=== PATIENT | male | born 1965 | race Caucasian/White ===

== ENCOUNTER 2024-11-03 09:23 | Outpatient (OUT) | payer OTHER, SELFPAY ==
--- OUTSIDE RECORDS SUMMARY | 2024-10-15 11:43 | XMS_ITS | Continuity of Care Document ---
Author Organization [facility] Address [address] [place] [address] Phone Care Team Providers Care Computer Patternmaker Name Role Phone Nick Velásquez Unavailable Unavailable Allergies, Adverse Reactions, Alerts Substance Reaction Status Criticality No Known Allergies Active No Inform ation Medications Medication Instructions Dosage Effective Dates (start - stop) Status Comments Trulicity Subcutaneous Solution Auto-injector 0.75 MG/0.5ML INJECT 0.5ML SUBCUTANEOUSLY EVERY WEEK - Active trazodone 50 mg tablet take 1-2 tablets by oral route every day at bedtime - Active tamsulosin 0.4 mg capsule Take 1 capsule by mouth daily 1/2 hour following the same meal each day - Active omeprazole 20 mg capsule,delayed release take 1 capsule by oral route every day 30 minutes to 1 hour before a meal 20 MG - Active decreased dose lovastatin 40 mg tablet take 2 tablet by oral route every day with the evening meal 80 MG - Active cetirizine 10 mg tablet take 1 tablet by oral route every day 10 MG - Active Cymbalta 60 mg capsule,delayed release take 1 capsule by oral route every day - Active fluticasone propionate 50 mcg/actuation nasal spray,suspension spray 1 - 2 spray by intranasal route every day in each nostril as needed 50-100 MCG - Active gabapentin 600 mg tablet take 2 tablet by oral route 3 times every day 1200 MG - Active LiquiGlide G7 Sensor device Use to check blood sugar daily. Change sensor every 3 months - Active metformin 1,000 mg tablet TAKE 1 TABLET BY MOUTH TWICE A DAY WITH MORNING AND EVENING MEALS - Active polyethylene glycol 3350 17 gram/dose oral powder Mix 17g (one capful) with 8 ounces of water or juice daily as needed for constipation - Active Wrist Brace Large Wearing nightly for hand numbness - Active Right and Left Wrist hydrocodone 7.5 mg-acetaminophen 325 mg tablet take 1 tablet by oral route every 8 hours as needed for pain 1 tablet - Active aspirin 81 mg tablet,delayed release take 1 tablet by oral route every day 81 MG - Active Trulicity 0.75 mg/0.5 mL subcutaneous pen injector inject (0.75MG) by subcutaneous route every week 0.75 MG - No Longer Active Procedures Procedure Date CBC (NO DIFF)&PLATELET CT Offsite Lab METABOLIC PANEL Offsite Lab GLYCOHEMOGLOBIN(A1C) Offsite Lab 2024 LIPID PANEL Offsite Lab OFFICE VISIT/EST LEVEL IV HG A1C LEVEL 7.0-8.0% LDL-C <100 MG/DL NEG MICROALBUMINURIA REV DIAST BP 80-89 MM HG SYST BP >=130-139MM HG RVW MEDS BY RX/DR IN [facility] MED LIST DOCD IN [facility] COLORECTAL CA SCREEN DOC REV OFFICE VISIT/EST LEVEL IV HG A1C LEVEL 7.0-8.0% LDL-C <100 MG/DL NEG MICROALBUMINURIA REV DIAST BP < 80 MM HG SYST BP < 130 MM HG RVW MEDS BY RX/DR IN [facility] MED LIST DOCD IN [facility] Screen Tobacco; User No Counseling PHQ2 Negative COLORECTAL CA SCREEN DOC REV URINE MICROALBUMIN CREATININE/24 HR. URINE [facility] Drug Monitoring Offsite Lab CBC (NO DIFF)&PLATELET CT Offsite Lab METABOLIC PANEL Offsite Lab GLYCOHEMOGLOBIN(A1C) Offsite Lab 2024 LIPID PANEL Offsite Lab VITAMIN B-12 CHEMISTRY FOLIC ACID (FOLATE) SERUM Vitamin D 3 25 Hydroxy Level Offsite Lab VENIPUNCTURE OFFICE VISIT/EST LEVEL IV HG A1C LEVEL < 7.0% LDL-C <100 MG/DL NEG MICROALBUMINURIA REV DIAST BP < 80 MM HG SYST BP < 130 MM HG RVW MEDS BY RX/DR IN [facility] MED LIST DOCD IN [facility] Screen Tobacco; User No Counseling COLORECTAL CA SCREEN DOC REV PT [place] USE OFFICE VISIT/EST LEVEL IV HG A1C LEVEL < 7.0% LDL-C <100 MG/DL NEG MICROALBUMINURIA REV DIAST BP < 80 MM HG SYST BP < 130 MM HG RVW MEDS BY RX/DR IN [facility] MED LIST DOCD IN [facility] Screen Tobacco; User No Counseling COLORECTAL CA SCREEN DOC REV [employer] W Inter&Rpt OnSite Op thamology DIL RETINA WITHOUT RETINOPATHY OFFICE VISIT/EST LEVEL IV HG A1C LEVEL < 7.0% LDL-C <100 MG/DL DIAST BP < 80 MM HG SYST BP < 130 MM HG RVW MEDS BY RX/DR IN [facility] MED LIST DOCD IN [facility] Screen Tobacco; User No Counseling COLORECTAL CA SCREEN DOC REV URINE DIP Onsite NON AUTO W/0 MICRO METABOLIC PANEL Offsite Lab CBC (NO DIFF)&PLATELET CT Offsite Lab Se GLYCOHEMOGLOBIN(A1C) Offsite Lab 2023 LIPID PANEL Offsite Lab VITAMIN B-12 CHEMISTRY FOLIC ACID (FOLATE) SERUM Vitamin D 3 25 Hydroxy Level Offsite Lab URINE MICROALBUMIN URINE CULTURE Offsite Psychotherapy Diagnostic Evaluation OV J OFFICE VISIT/EST LEVEL IV HG A1C LEVEL < 7.0% LDL-C <100 MG/DL DIAST BP < 80 MM HG SYST BP < 130 MM HG RVW MEDS BY RX/DR IN [facility] MED LIST DOCD IN [facility] Screen Tobacco; User No Counseling PHQ2 Pos W/ PHQ9 Completed COLORECTAL CA SCREEN DOC REV AMNT PAIN NOTED PAIN PRSNT VENIPUNCTURE OFFICE VISIT/EST LEVEL IV HG A1C LEVEL < 7.0% LDL-C <100 MG/DL DIAST BP < 80 MM HG SYST BP < 130 MM HG RVW MEDS BY RX/DR IN [facility] MED LIST DOCD IN [facility] Screen Tobacco; User No Counseling PHQ2 Negative COLORECTAL CA SCREEN DOC REV CBC (NO DIFF)&PLATELET CT Offsite Lab Ju METABOLIC PANEL Offsite Lab PSA (PROSTATE SPEC. ANTIGEN) C-REACTIVE PROTEIN (CRP) SED.RATE/AUTOMATED (Offsite) OFFICE VISIT/EST LEVEL IV HG A1C LEVEL < 7.0% LDL-C <100 MG/DL RVW MEDS BY RX/DR IN [facility] MED LIST DOCD IN [facility] Screen Tobacco; User No Counseling PHQ2 Negative COLORECTAL CA SCREEN DOC REV OFFICE VISIT/EST LEVEL IV MIK/ARB THERAPY RXD/TAKEN HG A1C LEVEL < 7.0% LDL-C <100 MG/DL DIAST BP < 80 MM HG SYST BP < 130 MM HG RVW MEDS BY RX/DR IN [facility] MED LIST DOCD IN [facility] Screen Tobacco; User No Counseling PHQ2 Negative COLORECTAL CA SCREEN DOC REV AMNT PAIN NOTED PAIN PRSNT T-4 FREE Offsite Lab TSH Offsite Lab CBC (NO DIFF)&PLATELET CT Offsite Lab Ap METABOLIC PANEL Offsite Lab GLYCOHEMOGLOBIN(A1C) Offsite Lab 2023 LIPID PANEL Offsite Lab OFFICE VISIT/EST LEVEL IV MIK/ARB THERAPY RXD/TAKEN HG A1C LEVEL < 7.0% LDL-C <100 MG/DL DIAST BP < 80 MM HG SYST BP < 130 MM HG RVW MEDS BY RX/DR IN [facility] Yoseph-29-2024 MED LIST DOCD IN [facility] Screen Tobacco; User No Counseling PHQ2 Negative COLORECTAL CA SCREEN DOC REV Substance Abuse screening OFFICE VISIT/EST LEVEL III MIK/ARB THERAPY RXD/TAKEN DIAST BP 80-89 MM HG SYST BP < 130 MM HG RVW MEDS BY RX/DR IN [facility] MED LIST DOCD IN [facility] Screen Tobacco; User No Counseling PHQ2 Negative COLORECTAL CA SCREEN DOC REV METABOLIC PANEL Offsite Lab CBC (NO DIFF)&PLATELET CT Offsite Lab No GLYCOHEMOGLOBIN(A1C) Offsite Lab 2022 LIPID PANEL Offsite Lab OFFICE VISIT/EST LEVEL IV MIK/ARB THERAPY RXD/TAKEN DIAST BP < 80 MM HG SYST BP < 130 MM HG RVW MEDS BY RX/DR IN [facility] MED LIST DOCD IN [facility] Screen Tobacco; User No Counseling PHQ2 Negative COLORECTAL CA SCREEN DOC REV OFFICE VISIT/EST LEVEL III MIK/ARB THERAPY RXD/TAKEN HG A1C LEVEL < 7.0% DIL RETINA WITHOUT RETINOPATHY LDL-C <100 MG/DL DIAST BP 80-89 MM HG SYST BP < 130 MM HG RVW MEDS BY RX/DR IN [facility] MED LIST DOCD IN [facility] Screen Tobacco; User No Counseling PHQ2 Negative COLORECTAL CA SCREEN DOC REV OFFICE VISIT/EST LEVEL IV MIK/ARB THERAPY RXD/TAKEN HG A1C LEVEL < 7.0% DIL RETINA WITHOUT RETINOPATHY 23 LDL-C <100 MG/DL DIAST BP < 80 MM HG SYST BP < 130 MM HG RVW MEDS BY RX/DR IN [facility] MED LIST DOCD IN [facility] Screen Tobacco; User No Counseling PHQ2 Negative COLORECTAL CA SCREEN DOC REV [facility] Drug Monitoring Offsite Lab OFFICE VISIT/EST LEVEL IV Rec MIK/ARB HG A1C LEVEL < 7.0% DIL RETINA WITHOUT RETINOPATHY 23 LDL-C <100 MG/DL DIAST BP < 80 MM HG SYST BP < 130 MM HG RVW MEDS BY RX/DR IN [facility] MED LIST DOCD IN [facility] Screen Tobacco; User No Counseling PHQ2 Negative COLORECTAL CA SCREEN DOC REV AMNT PAIN NOTED PAIN PRSNT OFFICE VISIT/EST LEVEL IV Rec MIK/ARB HG A1C LEVEL < 7.0% LDL-C <100 MG/DL DIAST BP < 80 MM HG SYST BP < 130 MM HG Medication Reviewed Screened Tobacco; User With Counseling J PHQ2 Negative PT [facility] [place] USE IMMUNIZATION ADM/SNGL Flu Quad; INJ;Pres Free; 3+ Yrs (C) EXMP T OFFICE VISIT/EST LEVEL IV Rec MIK/ARB HG A1C LEVEL < 7.0% Foot Exam LDL-C <100 MG/DL DIAST BP < 80 MM HG SYST BP < 130 MM HG Medication Reviewed Screened Tobacco; User With Counseling O PHQ2 Negative CBC (NO DIFF)&PLATELET CT Offsite Lab Se METABOLIC PANEL Offsite Lab GLYCOHEMOGLOBIN(A1C) Onsite Lab LIPID PANEL Offsite Lab [facility] Drug Monitoring OFFICE VISIT/EST LEVEL IV Rec MIK/ARB HG A1C LEVEL < 7.0% Foot Exam LDL-C <100 MG/DL DIAST BP < 80 MM HG SYST BP < 130 MM HG Medication Reviewed Screened Tobacco; User With Counseling J PHQ2 Negative CBC (NO DIFF)&PLATELET CT METABOLIC PANEL GLYCOHEMOGLOBIN(A1C) LIPID PANEL OFFICE VISIT/EST LEVEL IV Rec MIK/ARB HG A1C LEVEL < 7.0% Foot Exam DIAST BP < 80 MM HG SYST BP < 130 MM HG Screened Tobacco; User With Counseling A PHQ2 Negative OFFICE VISIT/EST LEVEL IV Rec MIK/ARB HG A1C LEVEL < 7.0% Foot Exam Screened Tobacco; User With Counseling F PHQ2 Negative [facility] Drug Monitoring OFFICE VISIT/EST LEVEL IV Rec MIK/ARB HG A1C LEVEL 7.0-8.0% Foot Exam DIAST BP 80-89 MM HG SYST BP < 130 MM HG Screened Tobacco; User With Counseling J PHQ2 Negative COLORECTAL CA SCREEN DOC REV PT [facility] [place] USE OFFICE VISIT/EST LEVEL III TeleHealth Visit Rec MIK/ARB LDL-C <100 MG/DL Medication Reviewed Screened Tobacco; User With Counseling N PHQ2 Negative [employer] W Inter&Rpt OnSite Oc LOW RISK FOR RETINOPATHY METABOLIC PANEL LIPID PANEL GLYCOHEMOGLOBIN(A1C) URINE MICROALBUMIN IMMUNIZATION ADM/SNGL Flu Quad; INJ;Pres Free; 3+ Yrs (C) EXMP T OFFICE VISIT/EST LEVEL IV Rec MIK/ARB HG A1C LEVEL 7.0-8.0% LDL-C <100 MG/DL DIAST BP < 80 MM HG SYST BP < 130 MM HG Medication Reviewed Screened Tobacco; User With Counseling O OFFICE VISIT/NEW LEVEL IV Rec MIK/ARB DIAST BP 80-89 MM HG SYST BP < 130 MM HG Medication Reviewed Screened Tobacco; User With Counseling A PHQ2 Negative PT [place] [place] USE Advance Directives Directive Yes / No Effective Date File Name No Information Encounters Encounter Description Practice Location Reason(s) For Visit Diagnoses Date Provider Providers Copied on Encounter [facility], [address] [address], [place], [place], [id number], tel:[phone] [place] [address] No Information 5 James Romero. [address] [place], [place], [facility], [place]. [phone] [facility], [address], [place], [place], [id number], [phone] [place] [address] No Information 5 James Romero. [address], [place], [place], [facility], [place]. tel:[phone] OFFICE VISIT/EST LEVEL IV [facility], [address], [place], [place], [id number], [phone] [place] [address] hyperlipidemi a (chief complaint)hyp ertension (chief complaint)jonas betes (chief complaint) Peripheral sensory neuropathy due to type 2 diabetes mellitusBenig n essential HTNHyperlipid emia, mixedBody mass index (BMI) 36.0-36.9, adult Aug- 5 James Romero. [address] , [place], [place], [facility], [place]. [phone] OFFICE VISIT/EST LEVEL IV [facility], [address], [place], [place], [id number], [phone] [facility] diabetes (chief complaint)hyp erlipidemia (chief complaint) Dietary counseling and surveillanceD iabetic polyneuropath y associated with type 2 diabetes mellitusPerip heral neuropathic painMixed hyperlipidemi aOther insomniaBenig n essential HTNOther chronic painBody mass index (BMI) 36.0-36.9, adult Jun- 5 James Chopra [address] , [place], [place], [facility], [place]. [phone] OFFICE VISIT/EST LEVEL IV [facility], [address], [place], [place], [id number], tel:[phone] [facility] diabetes (chief complaint)hyp erlipidemia (chief complaint) Dietary counseling and surveillanceD iabetic polyneuropath y associated with type 2 diabetes mellitusPerip heral neuropathic painUrge urinary incontinenceM ixed hyperlipidemi aOther insomniaOther chronic painBenign essential HTNBody mass index (BMI) 35.0-35.9, adult Yoseph- 5 James Stevens[address], [place], [place], [facility], [place]. tel:[phone] OFFICE VISIT/EST LEVEL IV [facility], [address], [place], [place], [id number], tel:[phone] [facility] diabetes (chief complaint) Dietary counseling and surveillanceP eripheral neuropathic painUmbilical hernia without obstruction and without gangreneUrge urinary incontinenceD iabetic polyneuropath y associated with type 2 diabetes mellitusBody mass index (BMI) 33.0-33.9, adultType 2 diabetes mellitus with hyperglycemia Jan- 4 James Romero. [address] , [place], [place], [facility], . tel:[phone] [facility], [address], [place], [place], [id number], tel:[phone] [facility] Frequent fallsPeripher al neuropathic pain Oct- 0 4 James Baker [address] [place], [place], [facility], [place]. tel:[phone] [facility], [address], [place], [place], [id number], tel:[phone] [facility] Periumbilical hernia 4 James Romero. [address], [place], [facility], [place]. tel:[phone] [facility], [address], [place], [place], [id number], tel:[phone] [facility] Umbilical hernia without obstruction and without gangrene Nov- 4 James Romero. [address] , [place], [place], [facility], . [phone] OFFICE VISIT/EST LEVEL IV [facility], [address], [place], [place], [id number], tel:[phone] [facility] diabetes (chief complaint)hyp ertension (chief complaint)inc ontinence (chief complaint) Dietary counseling and surveillanceT ype 2 diabetes mellitus with hyperglycemia Peripheral neuropathic painUrge urinary incontinenceU mbilical hernia without obstruction and without gangreneAtypi ashia moleBody mass index (BMI) 30.0-30.9, adult Sep- 4 James Romero. [address] , [place], [place], [facility], . tel:[phone] Psychotherapy Diagnostic Evaluation [facility], [address], [place], [address] [place] [address], [phone] [facility] Adjustment disorder with mixed anxiety and depressed mood 4 Sara Pedroza. [address] , [place], [place], [id number] , . [phone] OFFICE VISIT/EST LEVEL IV [facility], [address], [place], [place], [id number], [phone] [place] [address] Skin Lesion (chief complaint)Amadeo k pain (chief complaint) Dietary counseling and surveillanceH erpes zoster without complicationU nintentional weight lossOther constipationB dina mass index (BMI) 30.0-30.9, adultModerate major depression 4 James Romero. [address] , [place], [place], [facility], [place]. [phone] OFFICE VISIT/EST LEVEL IV [facility], [address], [place], [place], [id number], tel:[phone] [facility] unintentional weight loss (chief complaint) Dietary counseling and surveillanceU nintentional weight lossConstipat ion, unspecified constipation typeNocturiaC erebral ischemiaBody mass index (BMI) 31.0-31.9, adult 4 James Romero. [address] , [place], [place], [facility], . tel:[phone] [facility], [address], [place], [address] [place] [address], tel:[phone] [facility] Frequent fallsUnsteady gait 4 James Romero. [address] , [place], [place], [facility], . tel:[phone] OFFICE VISIT/EST LEVEL IV [facility], [address], [place], [address] [place] [address], tel:[phone] [place] [address] ER F/U (chief complaint) Dietary counseling and surveillanceM michelle impairmentGai t disturbanceFr equent fallsFrequent headachesUnin tentional weight lossSyncope and collapseBody mass index (BMI) 32.0-32.9, adult 4 James Romero. [address] , [place], [place], [facility], . tel:[phone] OFFICE VISIT/EST LEVEL IV [facility], [address], [place], [place], [id number], tel:[phone] [facility] diabetes (chief complaint)hyp ertension (chief complaint)hyp erlipidemia (chief complaint) Dietary counseling and surveillanceT ype 2 diabetes mellitus with hyperglycemia Essential hypertensionP eripheral neuropathic painDysphagia , unspecified typeParesthes ia of both handsUnintent ional weight lossBody mass index (BMI) 33.0-33.9, adult 4 James Romero. [address] , [place], [facility], [place]. tel:[phone] OFFICE VISIT/EST LEVEL IV [facility], [address], [place], [place], [id number], tel:[phone] [facility] diabetes (chief complaint)hyp ertension (chief complaint)hyp erlipidemia (chief complaint) Dietary counseling and surveillanceE ssential hypertensionP eripheral neuropathic painType 2 diabetes mellitus with hyperglycemia Paresthesia of both handsDysphagi a, unspecified typeBody mass index (BMI) 37.0-37.9, adult 4 James Romero. [address] , [place], [place], [facility], . tel:[phone] [facility], [address], [place], [place], [id number], tel:[phone] [facility] Peripheral neuropathic painType 2 diabetes mellitus with diabetic polyneuropath y 4 James Romero. [address] , [place], [place], [facility], [place]. tel:[phone] OFFICE VISIT/EST LEVEL III [facility], [address], [place], [place], [id number], tel:[phone] [facility] dark spot on toe (chief complaint) Dietary counseling and surveillanceC ellulitis of left toeOnychodyst rophyIngrown toenail of left footBody mass index (BMI) 40.0-44.9, adult 3 James Romero. [address] , [place], [place], [facility], [place]. tel:[phone] [facility], [address], [place], [place], [id number], tel:[phone] [place] [address] No Information 3 James Romero. [address] , [place], [facility], . tel:[phone] OFFICE VISIT/EST LEVEL IV [facility], [address], [place], [place], [address], tel:[phone] [facility] diabetes (chief complaint)eloisa ropathy (chief complaint) Dietary counseling and surveillanceP eripheral neuropathic painEssential hypertensionH yperlipidemia , unspecifiedTy pe 2 diabetes mellitus with hyperglycemia Body mass index (BMI) 40.0-44.9, adult Oct-3 0-202 3 James Chopra [address] , [place], [place], [facility], [place]. tel:[phone] OFFICE VISIT/EST LEVEL III [facility], [address], [place], [place], [id number], tel:[phone] [facility] neuropathy (chief complaint) Dietary counseling and surveillanceT ype 2 diabetes mellitus with diabetic polyneuropath yPeripheral neuropathic painBody mass index (BMI) 40.0-44.9, adult Sep-0 8- 3 James Romero. [address] [place] [address], [facility], [place]. tel:[phone] OFFICE VISIT/EST LEVEL IV [facility], [address] [facility], [place], [place], [address], tel:[phone] [facility] diabetes (chief complaint)hyp ertension (chief complaint)hyp erlipidemia (chief complaint)Eloisa ropathy (chief complaint) Dietary counseling and surveillanceT ype 2 diabetes mellitus with hyperglycemia Type 2 diabetes mellitus with diabetic polyneuropath yPeripheral neuropathic painHyperlipi demia, unspecifiedEs sential hypertensionB dina mass index (BMI) 40.0-44.9, adult Aug-0 7- 3 James Romero. [address] [place] [address], [facility], [place]. tel:[phone] OFFICE VISIT/EST LEVEL IV [facility], [address], [place], [place], [id number], tel:[phone] [facility] diabetes (chief complaint)hyp ertension (chief complaint)hyp erlipidemia (chief complaint) Dietary counseling and surveillanceT ype 2 diabetes mellitus with diabetic polyneuropath yType 2 diabetes mellitus with hyperglycemia Essential hypertensionH yperlipidemia , unspecifiedBi lateral foot painBody mass index (BMI) 40.0-44.9, adult 3 James Romero. [address] , [place], [facility], [place]. tel:[phone] OFFICE VISIT/EST LEVEL IV [facility], [address], [place], [place], [id number], tel:[phone] [facility] hypertension (chief complaint)jonas betes (chief complaint)hyp erlipidemia (chief complaint) Dietary counseling and surveillanceT ype 2 diabetes mellitus with diabetic polyneuropath yType 2 diabetes mellitus with hyperglycemia Hyperlipidemi a, unspecifiedEs sential hypertensionB ilateral foot painBody mass index (BMI) 40.0-44.9, adult 3 James Romero. [address] , [place], [facility], [place]. [phone] OFFICE VISIT/EST LEVEL IV [facility], [address], [place], [place], [id number], tel:[phone] [facility] diabetes (chief complaint)hyp ertension (chief complaint)hyp erlipidemia (chief complaint) Dietary counseling and surveillanceT ype 2 diabetes mellitus with hyperglycemia Type 2 diabetes mellitus with diabetic polyneuropath yHyperlipidem ia, unspecifiedEs sential hypertensionB dina mass index (BMI) 40.0-44.9, adult 2 James Romero. [address] , [place], [facility] [facility] [place]. tel:[phone] [facility], [address] [facility] [address], [place], [place], [id number], tel:[phone] [facility] No Information 2 James Romero. 1231 [facility] [address] [place] [address], [facility], . tel:[phone] OFFICE VISIT/EST LEVEL IV [facility], [address], [id number], tel:[phone] [facility] diabetes (chief complaint)hyp ertension (chief complaint)hyp erlipidemia (chief complaint) Dietary counseling and surveillanceT ype 2 diabetes mellitus with diabetic polyneuropath yType 2 diabetes mellitus with hyperglycemia Hyperlipidemi a, unspecifiedEs sential hypertensionB dina mass index (BMI) 40.0-44.9, adult 2 James Hendersonew. 1231 [facility] [address] [place] [address], [facility], . tel:[phone] OFFICE VISIT/EST LEVEL IV [facility], [address] [place] [address], [id number], tel:[phone] [facility] diabetes (chief complaint)hyp erlipidemia (chief complaint)hyp ertension (chief complaint) Type 2 diabetes mellitus with diabetic polyneuropath yType 2 diabetes mellitus with hyperglycemia Chest pain, unspecified typeEssential hypertensionH yperlipidemia , unspecifiedBo dy mass index (BMI) 40.0-44.9, adult 2 James BLACKMON Nick. 1231 [facility] [address] [place] [address], [facility], . tel:[phone] OFFICE VISIT/EST LEVEL IV [facility], [address] [place] [address], [id number], tel:[phone] [facility] neuropathy (chief complaint) Dietary counseling and surveillanceD iabetic polyneuropath y associated with type 2 diabetes mellitusBody mass index (BMI) 40.0-44.9, adultType 2 diabetes mellitus with diabetic polyneuropath y 2 James Hendersonew. 1231 [facility] [address] [place] [address], [facility], . tel:[phone] OFFICE VISIT/EST LEVEL IV [facility], [address] [place] [address] [address], [place], [place], [id number], tel:[phone] [facility] hyperlipidemi a (chief complaint)jonas betes (chief complaint)hyp ertension (chief complaint) Dietary counseling and surveillanceT ype 2 diabetes mellitus with hyperglycemia Essential hypertensionH yperlipidemia , unspecifiedDi abetic polyneuropath y associated with type 2 diabetes mellitusBody mass index (BMI) 40.0-44.9, adult 2 James Romero. 1231 [facility] [address], [place], [address], [place]. tel:[phone] OFFICE VISIT/EST LEVEL III [facility], [address] [facility] [address], [place], [place], [id number], tel:[phone] [facility] Diarrhea (chief complaint)URI (chief complaint) Upper respiratory tract infection, unspecified typeDiarrhea, unspecified type 1 James Romero. [address]31 [facility] [address], [place], [address], [place]. tel:[phone] [facility], [address] [address], [place], [place], [id number], tel:[phone] [facility] Type 2 diabetes mellitus with hyperglycemia 1 Wallace Santoro. [address] [place], [place], [id number] , [place]. [phone] OFFICE VISIT/EST LEVEL IV [facility], [address] [facility] [address], [place], [place], [id number], [place] tel:[phone] [facility] diabetes (chief complaint)hyp erlipidemia (chief complaint)hyp ertension (chief complaint) Dietary counseling and surveillanceT ype 2 diabetes mellitus with hyperglycemia Hyperlipidemi a, unspecifiedEs sential hypertensionB dina mass index (BMI) 40.0-44.9, adult 1 Wallace Doranica. [address] [place], [place], [id number] , [place]. [phone] [facility], [address], [place], [place], [id number], [place] [phone] [facility] No Information 1 Ramirez LORRI Hendersonew. [address] [facility] [address], [place], [address], [place]. tel:[phone] OFFICE VISIT/NEW LEVEL IV [facility], [address] [facility] [address] [facility] [address], [place], [place], [id number], [place] tel:[phone] [facility] hypertension (chief complaint)hyp erlipidemia (chief complaint)jonas betes (chief complaint) Dietary counseling and surveillanceE ssential hypertensionH yperlipidemia , unspecifiedTy pe 2 diabetes mellitus with hyperglycemia Body mass index (BMI) 40.0-44.9, adult Oct- 1 Wallace Santoro. [address] [place], [place], [id number] , [place]. tel:[phone] Family History Family Member Type Diagnosis Age At Onset Problem Family history of Diabetes m ignacio Mother Problem malignant neopla sm of breast in first degree relative Immunizations Vaccine Date Status Comments Influenza, split virus, trivalent, PF administered Source: Other Regist ry 6mos +Influenza administered Source: New Immunization Record SARS-COV-2 (COVID-19) Pfizer administered Source: Other Provider 6mos +Influenza administered Note: vis sh eet given ; Source: New Immunization Record SARS-COV-2 (COVID-19) Pfizer administered Source: Other Registry SARS-COV-2 (COVID-19) Pfizer administered Source: Other Registry Zoster administered Source: Other R egistry Tdap (Adacel) administered Source: Other Registry Pneumococcal polysaccharide PPV23 administered Source: Other Regist ry Payers Payer name Insurance type Covered democrat ID Authoriza tion(s) Liliana Lockwood Hlth Plan CI [id number] [employer] CV KL CI [id number] Claimlinx CV KL CI [id number] Liliana Lockwood Hlth Plan CI [id number] Claimlinx CV KL CI [id number] Social History Type Description Quantity Date Captured Comments Alcohol Use Details Unknown Caffeine Use Details Unknown Tobacco Use Status No Information Smoking Status No Information Sex Male Sexual Orientation Straight or heterosexual Jun Gender Identity Male Chief Complaint And Reason For Visit No Information Reason For Referral Reason For Referral No Information Plan Of Treatment Date Type Action Status Goal Tdap. Due on due Goal HIV Screen. Due on due Goal Pain Screening. Due on due Goal Annual Wellness Exam. Due on due Goal Colonoscopy. Due on 034 due Goal Lipid panel. Due on 030 due Goal Foot exam. Due on due Goal Dilated Retina Exam. Due on due Goal Microalbumin urine. Due on due Goal Hemoglobin A1C. Due on due Goal Dilated eye exam. Due on Sep due Goal Creatinine. Due on 26 due Goal Vitamin B12. Due on 026 due Goal eGFR. Due on due Goal Influenza vaccine. Due on due Goal Abdominal ultras ound. Due on due Goal H&P. Due on due Goal Zoster vaccine (1st) due Goal Pneumococcal vac cine. Due on due Goal HCV. Due on due Goal DNA Cologuard. Due on due Goal Low dose CT. Due on 025 due Goal Fundus photograp hy of eye. Due on due Goal MicroAlbumin. Due on 2025 due Goal Zoster vaccine ( ). Due on due Goal Pneumococcal vac cine. Due on due Goal Vitamin B12. Due on 026 due Goal Lipid panel. Due on 030 due Goal Influenza vaccine. Due on due Goal Hemoglobin A1C. Due on due Goal Foot exam. Due on due Goal Pain Screening. Due on due Goal Colonoscopy. Due on 034 due Goal Abdominal ultras ound. Due on due Goal Creatinine. Due on 26 due Goal Dilated eye exam. Due on Aug due Goal HCV. Due on due Goal Low dose CT. Due on 025 due Goal Fundus photograp hy of eye. Due on due Goal Microalbumin urine. Due on due Goal Zoster vaccine () due Goal H&P. Due on due Goal MicroAlbumin. Due on 2025 due Goal eGFR. Due on due Goal Dilated Retina Exam. Due on due Goal Annual Wellness Exam. Due on due Goal Tdap. Due on due Goal HIV Screen. Due on due Goal DNA Cologuard. Due on due Goal Zoster vaccine ( 2nd). Due on due Goal Vitamin B12. Due on 026 due Goal Microalbumin urine. Due on due Goal Dilated Retina Exam. Due on due Goal Hemoglobin A1C. Due on due Goal eGFR. Due on due Goal Zoster vaccine ( 2nd). Due on due Goal Fit test. Due on due Goal Colonoscopy. Due on 034 due Goal Pain Screening. Due on due Goal Potassium. Due on due Goal Foot exam. Due on due Goal Creatinine. Due on 26 due Goal MicroAlbumin. Due on 2024 due Goal Fundus photograp hy of eye. Due on due Goal HIV Screen. Due on due Goal HCV. Due on due Goal DNA Cologuard. Due on due Goal H&P. Due on due Goal Annual Wellness Exam. Due on due Goal Lipid panel. Due on 026 due Goal Zoster vaccine (1st) due Goal Tdap. Due on due Goal Abdominal ultras ound. Due on due Goal Influenza vaccine. Due on due Goal Low dose CT. Due on due Goal Pneumococcal vac cine. Due on due Goal Lifestyle education regardin g diet completed Goal HIV Screen. Due on due Goal Dilated Retina Exam. Due on due Goal Colonoscopy. Due on 034 due Goal Potassium. Due on due Goal Microalbumin urine. Due on due Goal Low dose CT. Due on due Goal DNA Cologuard. Due on due Goal Pain Screening. Due on due Goal Influenza vaccine. Due on due Goal Abdominal ultras ound. Due on due Goal Lipid panel. Due on due Goal HCV. Due on due Goal Fit test. Due on due Goal Zoster vaccine (1st) due Goal Zoster vaccine ( 2nd). Due on due Goal Creatinine. Due on due Goal Pneumococcal vac cine. Due on due Goal Foot exam. Due on due Goal Annual Wellness Exam. Due on due Goal Tdap. Due on due Goal H&P. Due on due Goal Fundus photograp hy of eye. Due on due Goal Vitamin B12. Due on due Goal MicroAlbumin. Due on 2024 due Goal Hemoglobin A1C. Due on due Goal eGFR. Due on due Goal Lifestyle education regardin g diet completed Goal Zoster vaccine () due Goal Vitamin B12. Due on due Goal Potassium. Due on due Goal Abdominal ultras ound. Due on due Goal Creatinine. Due on due Goal Fundus photograp hy of eye. Due on due Goal Hemoglobin A1C. Due on due Goal Annual Wellness Exam. Due on due Goal Dilated Retina Exam. Due on due Goal Urine microalbumin. Due on due Goal Foot exam. Due on due Goal Fit test. Due on due Goal Tdap. Due on due Goal HCV. Due on due Goal HIV Screen. Due on due Goal Pneumococcal vac cine. Due on due Goal Low dose CT. Due on due Goal Influenza vaccine. Due on due Goal Zoster vaccine ( 2nd). Due on due Goal H&P. Due on due Goal DNA Cologuard. Due on due Goal Colonoscopy. Due on due Goal Pain Screening. Due on due Goal Lipid panel. Due on due Goal Lifestyle education regardin g diet completed Goal Hemoglobin A1C. Due on due Goal Vitamin B12. Due on due Goal Dilated Retina Exam. Due on due Goal Influenza vaccine. Due on due Goal DNA Cologuard. Due on due Goal Zoster vaccine ( 2nd). Due on due Goal Zoster vaccine (1st) due Goal Colonoscopy. Due on due Goal Potassium. Due on due Goal Foot exam. Due on due Goal Tdap. Due on due Goal Urine microalbumin. Due on due Goal Fundus photograp hy of eye. Due on due Goal Creatinine. Due on due Goal Pain Screening. Due on due Goal Low dose CT. Due on 024 due Goal H&P. Due on due Goal Pneumococcal vac cine. Due on due Goal Annual Wellness Exam. Due on due Goal HCV. Due on due Goal Fit test. Due on due Goal HIV Screen. Due on 24 due Goal Abdominal ultras ound. Due on due Goal Lipid panel. Due on due Goal Tdap. Due on due Goal DNA Cologuard. Due on due Goal Fit test. Due on due Goal H&P. Due on due Goal Annual Wellness Exam. Due on due Goal Low dose CT. Due on 024 due Goal Zoster vaccine ( 2nd). Due on due Goal Colonoscopy. Due on 034 due Goal Influenza vaccine. Due on due Goal Potassium. Due on due Goal Creatinine. Due on 25 due Goal Hemoglobin A1C. Due on due Goal Fundus photograp hy of eye. Due on due Goal Dilated Retina Exam. Due on due Goal HIV Screen. Due on 24 due Goal Urine microalbumin. Due on due Goal Foot exam. Due on due Goal Vitamin B12. Due on due Goal Pain Screening. Due on due Goal Lipid panel. Due on due Goal HCV. Due on due Goal Pneumococcal vac cine. Due on due Goal Zoster vaccine (1st) due Goal Urine microalbumin. Due on due Goal Pain Screening. Due on due Goal HIV Screen. Due on 24 due Goal Pneumococcal vac cine. Due on due Goal Zoster vaccine (1st) due Goal H&P. Due on due Goal Potassium. Due on due Goal Zoster vaccine ( 2nd). Due on due Goal Low dose CT. Due on 024 due Goal Creatinine. Due on 25 due Goal Influenza vaccine. Due on due Goal Vitamin B12. Due on 025 due Goal Fundus photograp hy of eye. Due on due Goal Hemoglobin A1C. Due on due Goal Annual Wellness Exam. Due on due Goal Foot exam. Due on due Goal Dilated Retina Exam. Due on due Goal DNA Cologuard. Due on due Goal Fit test. Due on due Goal Tdap. Due on due Goal Colonoscopy. Due on 034 due Goal HCV. Due on due Goal Lipid panel. Due on 025 due Goal Pain Screening. Due on due Goal Urine microalbumin. Due on due Goal Foot exam. Due on due Goal Fundus photograp hy of eye. Due on due Goal Vitamin B12. Due on 025 due Goal Influenza vaccine. Due on due Goal Potassium. Due on 5 due Goal Low dose CT. Due on 024 due Goal Dilated Retina Exam. Due on due Goal Hemoglobin A1C. Due on due Goal Creatinine. Due on 25 due Goal Zoster vaccine (1st) due Goal Zoster vaccine ( 2nd). Due on due Goal HCV. Due on due Goal Lipid panel. Due on 025 due Goal H&P. Due on due Goal Tdap. Due on due Goal DNA Cologuard. Due on due Goal Annual Wellness Exam. Due on due Goal Colonoscopy. Due on 034 due Goal Fit test. Due on due Goal Pneumococcal vac cine. Due on due Goal HIV Screen. Due on 24 due Goal Lifestyle education regardin g diet completed Goal Pneumococcal vac cine. Due on due Goal DNA Cologuard. Due on due Goal HCV. Due on due Goal Lipid panel. Due on 025 due Goal Fit test. Due on due Goal H&P. Due on due Goal Influenza vaccine. Due on due Goal Pain Screening. Due on due Goal HIV Screen. Due on 24 due Goal Annual Wellness Exam. Due on due Goal Low dose CT. Due on due Goal Tdap. Due on due Goal Hemoglobin A1C. Due on due Goal Colonoscopy. Due on due Goal Zoster vaccine ( ). Due on due Goal Zoster vaccine () due Goal Foot exam. Due on due Goal Fundus photograp hy of eye. Due on due Goal Potassium. Due on due Goal Dilated Retina Exam. Due on due Goal Creatinine. Due on due Goal Vitamin B12. Due on due Goal Urine microalbumin. Due on due Goal Urine microalbumin. Due on due Goal Tdap. Due on due Goal Dilated Retina Exam. Due on due Goal Creatinine. Due on due Goal Pain Screening. Due on due Goal Zoster vaccine (1st) due Goal Fundus photograp hy of eye. Due on due Goal Potassium. Due on due Goal Vitamin B12. Due on due Goal Foot exam. Due on due Goal Influenza vaccine. Due on due Goal Hemoglobin A1C. Due on due Goal HCV. Due on due Goal Pneumococcal vac cine. Due on due Goal Annual Wellness Exam. Due on due Goal HIV Screen. Due on due Goal Colonoscopy. Due on 034 due Goal Low dose CT. Due on due Goal H&P. Due on due Goal DNA Cologuard. Due on due Goal Zoster vaccine ( 2nd). Due on due Goal Lipid panel. Due on 025 due Goal Fit test. Due on due Goal Lifestyle education regardin g diet completed Goal Potassium. Due on 5 due Goal Urine microalbumin. Due on due Goal Low dose CT. Due on due Goal Fit test. Due on due Goal Vitamin B12. Due on due Goal Foot exam. Due on due Goal Pneumococcal vac cine. Due on due Goal Fundus photograp hy of eye. Due on due Goal Tdap. Due on due Goal Dilated Retina Exam. Due on due Goal Hemoglobin A1C. Due on due Goal Creatinine. Due on due Goal Influenza vaccine. Due on due Goal Pain Screening. Due on due Goal H&P. Due on due Goal Annual Wellness Exam. Due on due Goal Zoster vaccine ( 2nd). Due on due Goal DNA Cologuard. Due on due Goal Lipid panel. Due on 025 due Goal Zoster vaccine (1st) due Goal Colonoscopy. Due on 034 due Goal Lifestyle education regardin g diet completed Goal Creatinine. Due on due Goal Dilated Retina Exam. Due on due Goal Urine microalbumin. Due on due Goal Zoster vaccine () due Goal Potassium. Due on 5 due Goal Fundus photograp hy of eye. Due on due Goal Vitamin B12. Due on 024 due Goal Foot exam. Due on 4 due Goal Pneumococcal vac cine. Due on due Goal Zoster vaccine ( 2nd). Due on due Goal Pain Screening. Due on due Goal Hemoglobin A1C. Due on due Goal DNA Cologuard. Due on due Goal Colonoscopy. Due on due Goal Lipid panel. Due on due Goal Fit test. Due on due Goal Low dose CT. Due on due Goal Tdap. Due on due Goal H&P. Due on due Goal Influenza vaccine. Due on due Goal Annual Wellness Exam. Due on due Goal Potassium. Due on due Goal DNA Cologuard. Due on due Goal Hemoglobin A1C. Due on due Goal Fundus photograp hy of eye. Due on due Goal Urine microalbumin. Due on due Goal Dilated Retina Exam. Due on due Goal Foot exam. Due on due Goal Tdap. Due on due Goal Influenza vaccine. Due on due Goal Colonoscopy. Due on due Goal Vitamin B12. Due on due Goal Fit test. Due on due Goal H&P. Due on due Goal Zoster vaccine ( 2nd). Due on due Goal Creatinine. Due on 25 due Goal Zoster vaccine (1st) due Goal Low dose CT. Due on due Goal Pain Screening. Due on due Goal Pneumococcal vac cine. Due on due Goal Lipid panel. Due on due Goal Annual Wellness Exam. Due on due Goal Lifestyle education regardin g diet completed Goal Pneumococcal vac cine. Due on due Goal Annual Wellness Exam. Due on due Goal Pain Screening. Due on due Goal DNA Cologuard. Due on due Goal Zoster vaccine ( ). Due on due Goal Urine microalbumin. Due on due Goal Hemoglobin A1C. Due on due Goal Fit test. Due on due Goal Fundus photograp hy of eye. Due on due Goal Influenza vaccine. Due on due Goal Tdap. Due on due Goal Foot exam. Due on 4 due Goal Dilated Retina Exam. Due on due Goal Low dose CT. Due on due Goal Creatinine. Due on 25 due Goal Zoster vaccine (1st) due Goal Vitamin B12. Due on due Goal Potassium. Due on 5 due Goal Lipid panel. Due on due Goal Colonoscopy. Due on due Goal HIV Screen. Due on due Goal HCV. Due on due Goal H&P. Due on due Goal Lifestyle education regardin g diet completed Goal HCV. Due on due Goal Fit test. Due on due Goal Dilated Retina Exam. Due on due Goal Vitamin B12. Due on due Goal Fundus photograp hy of eye. Due on due Goal Foot exam. Due on due Goal Low dose CT. Due on due Goal Creatinine. Due on due Goal Hemoglobin A1C. Due on due Goal Pain Screening. Due on due Goal Zoster vaccine (1st) due Goal Zoster vaccine ( 2nd). Due on due Goal Potassium. Due on due Goal Urine microalbumin. Due on due Goal H&P. Due on due Goal Pneumococcal vac cine. Due on due Goal Tdap. Due on due Goal Lipid panel. Due on due Goal Colonoscopy. Due on due Goal HIV Screen. Due on due Goal DNA Cologuard. Due on due Goal Influenza vaccine. Due on due Goal Lifestyle education regardin g diet completed Goal HCV. Due on due Goal Fit test. Due on due Goal Vitamin B12. Due on due Goal DNA Cologuard. Due on due Goal Dilated Retina Exam. Due on due Goal Tdap. Due on due Goal Hemoglobin A1C. Due on due Goal Potassium. Due on due Goal H&P. Due on due Goal Pain Screening. Due on due Goal Urine microalbumin. Due on due Goal Creatinine. Due on due Goal Zoster vaccine (1st) due Goal Fundus photograp hy of eye. Due on due Goal Low dose CT. Due on due Goal Foot exam. Due on due Goal Zoster vaccine ( 2nd). Due on due Goal Colonoscopy. Due on due Goal Lipid panel. Due on due Goal HIV Screen. Due on due Goal Influenza vaccine. Due on due Goal Pneumococcal vac cine. Due on due Goal Creatinine. Due on due Goal Urine microalbumin. Due on due Goal Dilated Retina Exam. Due on due Goal Hemoglobin A1C. Due on due Goal Vitamin B12. Due on 023 due Goal Fundus photograp hy of eye. Due on due Goal Fit test. Due on due Goal Potassium. Due on due Goal Foot exam. Due on due Goal Lipid panel. Due on 024 due Goal H&P. Due on due Goal Low dose CT. Due on due Goal Pain Screening. Due on due Goal HCV. Due on due Goal Colonoscopy. Due on due Goal Pneumococcal vac cine. Due on due Goal Zoster vaccine ( 2nd). Due on due Goal HIV Screen. Due on due Goal Influenza vaccine. Due on due Goal DNA Cologuard. Due on due Goal Zoster vaccine (1st) due Goal Tdap. Due on due Goal Lifestyle education regardin g diet completed Goal Urine microalbumin. Due on due Goal Fit test. Due on due Goal Foot exam. Due on due Goal Potassium. Due on due Goal Pneumococcal vac cine. Due on due Goal Influenza vaccine. Due on Oc due Goal Low dose CT. Due on due Goal DNA Cologuard. Due on due Goal HIV Screen. Due on due Goal Creatinine. Due on due Goal Tdap. Due on due Goal HCV. Due on due Goal Zoster vaccine (1st) due Goal Fundus photograp hy of eye. Due on due Goal H&P. Due on due Goal Zoster vaccine ( 2nd). Due on due Goal Dilated Retina Exam. Due on due Goal Colonoscopy. Due on due Goal Vitamin B12. Due on due Goal Hemoglobin A1C. Due on due Goal Lifestyle education regardin g diet completed Goal Low dose CT. Due on due Goal Tdap. Due on due Goal Fit test. Due on due Goal Zoster vaccine (1st) due Goal Potassium. Due on due Goal Colonoscopy. Due on due Goal Creatinine. Due on due Goal DNA Cologuard. Due on due Goal H&P. Due on due Goal HIV Screen. Due on due Goal Influenza vaccine. Due on due Goal Pneumococcal vac cine. Due on due Goal HCV. Due on due Goal Zoster vaccine ( 2nd). Due on due Goal Urine microalbumin. Due on due Goal Fundus photograp hy of eye. Due on due Goal Dilated Retina Exam. Due on due Goal Vitamin B12. Due on 023 due Goal Hemoglobin A1C. Due on due Goal Foot exam. Due on 4 due Goal Lifestyle education regardin g diet completed Goal Hemoglobin A1C. Due on due Goal Creatinine. Due on 24 due Goal Vitamin B12. Due on 023 due Goal Foot exam. Due on 4 due Goal Potassium. Due on 4 due Goal Fundus photograp hy of eye. Due on due Goal Dilated Retina Exam. Due on due Goal Urine microalbumin. Due on due Goal HCV. Due on due Goal Fit test. Due on due Goal Colonoscopy. Due on 027 due Goal Zoster vaccine (1st) due Goal Tdap. Due on due Goal H&P. Due on due Goal HIV Screen. Due on 23 due Goal Pneumococcal vac cine. Due on due Goal Influenza vaccine. Due on due Goal Low dose CT. Due on due Goal Zoster vaccine ( 2nd). Due on due Goal DNA Cologuard. Due on due Goal Lifestyle education regardin g diet completed Goal H&P. Due on due Goal Colonoscopy. Due on due Goal Pneumococcal vac cine. Due on due Goal HCV. Due on due Goal HIV Screen. Due on 23 due Goal Zoster vaccine (1st) due Goal Dilated Retina Exam. Due on due Goal Foot exam. Due on 4 due Goal Hemoglobin A1C. Due on due Goal Potassium. Due on 4 due Goal Creatinine. Due on 24 due Goal Urine microalbumin. Due on due Goal Vitamin B12. Due on due Goal Influenza vaccine. Due on due Goal Fundus photograp hy of eye. Due on due Goal Zoster vaccine ( 2nd). Due on due Goal Fit test. Due on due Goal Low dose CT. Due on due Goal Tdap. Due on due Goal DNA Cologuard. Due on due Goal Weight-reducing diet educati on completed Goal Lipid panel. Due on due Goal Low dose CT. Due on due Goal Fit test. Due on due Goal DNA Cologuard. Due on due Goal Creatinine. Due on due Goal Pneumococcal vac cine. Due on due Goal HCV. Due on due Goal Tdap. Due on due Goal Potassium. Due on due Goal Hemoglobin A1C. Due on due Goal Vitamin B12. Due on due Goal Zoster vaccine ( 2nd). Due on due Goal Colonoscopy. Due on due Goal Influenza vaccine. Due on due Goal H&P. Due on due Goal Dilated Retina Exam. Due on due Goal Foot exam. Due on due Goal HIV Screen. Due on due Goal Zoster vaccine (1st) due Goal Fundus photograp hy of eye. Due on due Goal Weight-reducing diet educati on completed Goal Colonoscopy. Due on due Goal Lipid panel. Due on due Goal Zoster vaccine ( 2nd). Due on due Goal Fit test. Due on due Goal DNA Cologuard. Due on due Goal HCV. Due on due Goal H&P. Due on due Goal Influenza vaccine. Due on due Goal Tdap. Due on due Goal Low dose CT. Due on due Goal Urine microalbumin. Due on due Goal HIV Screen. Due on due Goal Hemoglobin A1C. Due on due Goal Dilated Retina Exam. Due on due Goal Vitamin B12. Due on due Goal Creatinine. Due on due Goal Potassium. Due on due Goal Foot exam. Due on 3 due Goal Fundus photograp hy of eye. Due on due Goal Zoster vaccine (1st) due Goal Pneumococcal vac cine. Due on due Goal Weight-reducing diet educati on completed Goal Colonoscopy. Due on 027 due Goal Pneumococcal vac cine. Due on due Goal Creatinine. Due on due Goal Hemoglobin A1C. Due on due Goal Foot exam. Due on due Goal HIV Screen. Due on due Goal Potassium. Due on due Goal HCV. Due on due Goal Fit test. Due on due Goal Dilated Retina Exam. Due on due Goal Urine microalbumin. Due on due Goal Fundus photograp hy of eye. Due on due Goal Vitamin B12. Due on due Goal Zoster vaccine (1st) due Goal Zoster vaccine ( 2nd). Due on due Goal Low dose CT. Due on due Goal DNA Cologuard. Due on due Goal Lipid panel. Due on due Goal Tdap. Due on due Goal Influenza vaccine. Due on due Goal H&P. Due on due Goal Weight-reducing diet educati on completed Goal Potassium. Due on 2 due Goal H&P. Due on due Goal Foot exam. Due on 3 due Goal Tdap. Due on due Goal Fundus photograp hy of eye. Due on due Goal Dilated Retina Exam. Due on due Goal Urine microalbumin. Due on A due Goal Vitamin B12. Due on due Goal Zoster vaccine ( 2nd). Due on due Goal Hemoglobin A1C. Due on due Goal Colonoscopy. Due on 027 due Goal DNA Cologuard. Due on due Goal Pneumococcal vaccine due Goal Low dose CT. Due on due Goal Influenza vaccine. Due on Oc due Goal Fit test. Due on due Goal Creatinine. Due on due Goal Zoster vaccine ( 1st). Due on due Goal HIV Screen. Due on due Goal Lipid panel. Due on 023 due Goal HCV. Due on due Goal Pneumococcal vaccine due Goal Fit test. Due on due Goal DNA Cologuard. Due on due Goal Zoster vaccine ( ). Due on due Goal H&P. Due on due Goal Tdap. Due on due Goal Lipid panel. Due on 023 due Goal Influenza vaccine. Due on due Goal Urine microalbumin. Due on due Goal Colonoscopy. Due on 027 due Goal HCV. Due on due Goal Low dose CT. Due on due Goal HIV Screen. Due on due Goal Zoster vaccine ( ). Due on due Goal Foot exam. Due on 3 due Goal Hemoglobin A1C. Due on due Goal Vitamin B12. Due on due Goal Fundus photograp hy of eye. Due on due Goal Creatinine. Due on due Goal Potassium. Due on 2 due Goal Dilated Retina Exam. Due on due Goal Weight-reducing diet educati on completed Goal Pneumococcal vaccine due Goal Foot exam. Due on 3 due Goal Zoster vaccine ( ). Due on due Goal Urine microalbumin. Due on due Goal H&P. Due on due Goal Tdap. Due on due Goal Fundus photograp hy of eye. Due on due Goal Vitamin B12. Due on 022 due Goal Colonoscopy. Due on 027 due Goal Creatinine. Due on due Goal Potassium. Due on due Goal Dilated Retina Exam. Due on due Goal Hemoglobin A1C. Due on due Goal HCV. Due on due Goal Zoster vaccine ( 2nd). Due on due Goal Lipid panel. Due on 023 due Goal Influenza vaccine. Due on due Goal DNA Cologuard. Due on due Goal Fit test. Due on due Goal Low dose CT. Due on 022 due Goal HIV Screen. Due on due Goal Weight-reducing diet educati on completed Goal Fundus photograp hy of eye. Due on due Goal Foot exam. Due on due Goal Urine microalbumin. Due on N due Goal Creatinine. Due on due Goal Dilated Retina Exam. Due on due Goal H&P. Due on due Goal Low dose CT. Due on due Goal Zoster vaccine ( ). Due on due Goal Potassium. Due on due Goal Pneumococcal vaccine due Goal HCV. Due on due Goal Vitamin B12. Due on due Goal Lipid panel. Due on due Goal Fit test. Due on due Goal Tdap. Due on due Goal DNA Cologuard. Due on due Goal Hemoglobin A1C. Due on due Goal Zoster vaccine ( ). Due on due Goal HIV Screen. Due on due Goal Colonoscopy. Due on due Goal Influenza vaccine. Due on Oc due Goal Vitamin B12. Due on due Goal Influenza vaccine. Due on Oc due Goal Creatinine. Due on due Goal Foot exam. Due on due Goal Hemoglobin A1C. Due on due Goal Urine microalbumin. Due on O due Goal Fundus photograp hy of eye. Due on due Goal Potassium. Due on due Goal Dilated Retina Exam. Due on due Goal Pneumococcal vaccine due Goal H&P. Due on due Goal HCV. Due on due Goal Zoster vaccine ( 1st). Due on due Goal DNA Cologuard. Due on due Goal Tdap. Due on due Goal Fit test. Due on due Goal HIV Screen. Due on due Goal Colonoscopy. Due on due Goal Zoster vaccine ( ). Due on due Goal Low dose CT. Due on due Goal Lipid panel. Due on due Goal Creatinine. Due on due Goal Foot exam. Due on due Goal Dilated Retina Exam. Due on due Goal HCV. Due on due Goal Urine microalbumin. Due on O due Goal Influenza vaccine. Due on Oc due Goal Vitamin B12. Due on due Goal Hemoglobin A1C. Due on due Goal Pneumococcal vaccine due Goal Tdap. Due on due Goal Potassium. Due on due Goal Fundus photograp hy of eye. Due on due Goal H&P. Due on due Goal Zoster vaccine ( 2nd). Due on due Goal Low dose CT. Due on due Goal Colonoscopy. Due on due Goal DNA Cologuard. Due on due Goal HIV Screen. Due on due Goal Fit test. Due on due Goal Zoster vaccine ( ). Due on due Goal Lipid panel. Due on due Goal Weight-reducing diet educati on completed Goal Fundus photograp hy of eye. Due on due Goal Potassium. Due on due Goal Dilated Retina Exam. Due on due Goal Vitamin B12. Due on due Goal Foot exam. Due on due Goal Lipid panel. Due on due Goal Urine microalbumin. Due on A due Goal Creatinine. Due on due Goal Hemoglobin A1C. Due on due Goal HCV. Due on due Goal H&P. Due on due Goal Tdap. Due on due Goal HIV Screen. Due on 21 due Goal Influenza vaccine. Due on due Goal Low dose CT. Due on due Goal DNA Cologuard. Due on due Goal Colonoscopy. Due on due Goal Fit test. Due on due Goal Zoster vaccine ( 2nd). Due on due Goal Zoster vaccine ( 1st). Due on due Goal Weight-reducing diet educati on completed Referral Referred To: Walker seat attachment Ordered: Referrals: Walker seat attachment. Evaluate and treat ordered Referral Ordered: Referrals: Surgery. Evaluate and treat ordered Referral Ordered: ULTRASOUND OF ABDOMEN/COMPLETE ordered Referral Ordered: Referrals: Dermatology Appointment date/timeframe: 01/09/2024 ordered Referral Ordered: CT ABDOMEN & PELVIS /W And W/O CONTRAST with oral and IV contrast ordered Referral Ordered: Referrals: Urology. Evaluate and treat ordered Referral Referred To: Walker with Seat - [id number] Ordered: Referrals: Walker with Seat - [id number]. Evaluate and treat ordered Referral Referred To: Cane Ordered: Referrals: Cane ordered Referral Ordered: Hematopath Consultation, Smear ordered Referral Ordered: HIV 1/0/2 Ag/Ab with Reflex ordered Referral Ordered: Antinuclear Antibodies, JOAN, IFA ordered Referral Ordered: CBC With Differential/Platelet ordered Referral Ordered: Sedimentation Rate-Westergren ordered Referral Ordered: C-Reactive Protein, Quant ordered Referral Ordered: HCV Antibody ordered Referral Ordered: MRI BRAIN W/O DYE ordered Referral Ordered: CHEST X-RAY/2 VIEWS ordered Referral Ordered: Referrals: Gastroenterology. Evaluate and treat Appointment date/timeframe: 06/01/2023 ordered Referral Ordered: EMG, 2 LIMBS Bilateral Hands Appointment date/timeframe: 06/21/2023 ordered Referral Ordered: Referrals: Pain Management. Evaluate and treat ordered Referral Ordered: Referrals: Neurology. Evaluate and treat ordered Referral Ordered: Referrals: Vascular Surgery. Evaluate and treat ordered Referral Ordered: Medtox ordered Referral Ordered: Microalb/Creat Ratio, Randm Ur ordered Referral Ordered: Referrals: Podiatry. Evaluate and treat ordered Referral Ordered: Referrals: Cardiology. Evaluate and treat ordered Future Order: Lab Order C-Reacti ve Protein, Quant ([id number]), Ordered on: Ordered Future Order: Lab Order HIV 1/0/ 2 Ag/Ab with Reflex ([id number]), Ordered on: Ordered Future Order: Lab Order HCV Anti body ([id number]), Ordered on: Ordered Future Order: Lab Order Antinucl ear Antibodies, JOAN, IFA ([id number]), Ordered on: Ordered Future Order: Lab Order CBC With Differential/Platelet ([id number]), Ordered on: Ordered Future Order: Lab Order Hematopa th Consultation, Smear ([id number]), Ordered on: Ordered Future Order: Lab Order Sediment ation Rate-Westergren ([id number]), Ordered on: Ordered Future Order: Lab Order CBC, Leona telet; No Differential ([id number]), Scheduled for: Ordered Future Order: Lab Order Comp. Me tabolic Panel (14) ([id number]), Scheduled for: Ordered Future Order: Lab Order Hgb A1c with eAG Estimation ([id number]), Scheduled for: Ordered Future Order: Lab Order Lipid Pa chhaya ([id number]), Scheduled for: Ordered Future Order: Lab Order Medtox ( [id number]), Scheduled for: Ordered Future Order: Lab Order Microalb /Creat Ratio, Rand Ur ([id number]), Scheduled for: Ordered Future Order: Lab Order CBC, Leona telet; No Differential ([id number]), Scheduled for: Ordered Future Order: Lab Order Comp. Me tabolic Panel (14) ([id number]), Scheduled for: Ordered Future Order: Lab Order Hgb A1c with eAG Estimation ([id number]), Scheduled for: Ordered Future Order: Lab Order Lipid Pa chhaya ([id number]), Scheduled for: Ordered Future Order: Lab Order CBC, Leona telet; No Differential ([id number]), Scheduled for: Ordered Future Order: Lab Order Comp. Me tabolic Panel (14) ([id number]), Scheduled for: Ordered Future Order: Lab Order Hgb A1c with eAG Estimation ([id number]), Scheduled for: Ordered Future Order: Lab Order Lipid Pa chhaya ([id number]), Scheduled for: Ordered History Of Present Illness Encounter Date Complaint History Of Prese nt Illness hyperlipidemia hypertension diabetes hyperlipidemia Reasons for scre ening include diabetes mellitus. Reasons for screening do not include hypertension. Pertinent negatives include abdominal pain, chest pain and heartburn. diabetes The problem is s table. Risk factors include: obesity and over age [age] years old. Managing with: Diet and Oral medications. Comorbidity: Hypertension. Associated symptoms include: burning of extremities. Pertinent negatives include blurred vision, chest pain, foot ulcers, frequent infections, urinary frequency and heartburn. hyperlipidemia Reasons for scre ening include diabetes mellitus. Pertinent negatives include abdominal pain, chest pain, claudication, constipation, diarrhea, dizziness, fatigue, malaise and nausea. diabetes Risk factors inc lude: obesity and over age [age] years old. Managing with: Diet and Oral medications. Comorbidity: Hypertension. Pertinent negatives include chest pain, diarrhea, dyspnea, frequent infections, urinary frequency, weight gain and weight loss. diabetes diabetes Risk factors inc lude: obesity and over age [age] years old. Managing with: Diet and Oral medications. Comorbidity: Hypertension. Pertinent negatives include burning of extremities. hypertension Comorbid conditi ons include diabetes mellitus. Risk factors include high salt intake, inactive lifestyle, male gender, obesity and sleep apnea. Pertinent negatives include chest pain, claudication and irregular heartbeat/palpitations. incontinence Reports urine in continence for 4-5 months. Thought maybe it would go away. Gets increased frequency. Has urgency, does not not make it to the bathroom in time to go. Gets up 4 times nightly. Feels like bladder does not empty; Has slow stream and will dribble urine Skin Lesion The patient pres ents with Skin Lesion that began 3 days ago. Area(s) of concern include the left lower anterior thorax and left lower posterior back. Aggravating factors do not include scratching. Associated symptoms include pruritus and painful lesions. The patient reports no fatigue or lesion discharge. Back pain Onset: 3 days ag o. Location of pain is middle back. unintentional weight loss Follow up for weight loss. Lost any additional 9 lbs since last appt. Reports he has been eating more, typically just lunch and dinner. Will eat tomato soup or maybe and egg sandwich. Dinner - Will had Meatloaf or hamburger - typically cooks at home. reports appetite has been improved since stopping Trulicity. Denies abdominal pain or discomfort. Does get constipation with BM ~ once weekly. ER F/U ER follow up for Syncope and Collapse with LOC. Hit head. work up normal except for hypotension. Given IVF, stopped Lisinopril. hyperlipidemia Reasons for scre ening include alcohol use. Pertinent negatives include abdominal pain, chest pain, claudication, constipation, diarrhea, dizziness, fatigue, malaise and nausea. diabetes The problem is s table. Risk factors include: obesity and over age [age] years old. Managing with: Diet and Oral medications. Comorbidity: Hypertension. Associated symptoms include: weight loss. Pertinent negatives include chest pain, diarrhea, dyspnea, frequent infections, urinary frequency, slow healing wounds / sores and weight gain. hypertension Comorbid conditi ons include diabetes mellitus. Risk factors include high salt intake, inactive lifestyle, male gender, obesity and sleep apnea. Pertinent negatives include chest pain, claudication, dyspnea, fatigue, hematuria, irregular heartbeat/palpitations, nausea and vomiting. hyperlipidemia Reasons for scre ening include alcohol use. Pertinent negatives include chest pain and claudication. hypertension Comorbid conditi ons include diabetes mellitus. Risk factors include high salt intake, inactive lifestyle, male gender, obesity and sleep apnea. Pertinent negatives include chest pain, claudication, confusion and irregular heartbeat/palpitations. diabetes Risk factors inc lude: obesity and over age [age] years old. Managing with: Diet and Oral medications. Comorbidity: Hypertension. Pertinent negatives include frequent infections, urinary frequency, weight gain and weight loss. dark spot on toe Reports noticed his left second toe was discolored yesterday. States concerned it was getting turning black. Gets ingrown toes, will dig out on his own diabetes The problem is s table. Risk factors include: obesity and over age [age] years old. Managing with: Diet and Oral medications. Comorbidity: Hypertension. Pertinent negatives include frequent infections, urinary frequency, weight gain and weight loss. neuropathy Severity level i s severe. Location of numbness is bilateral foot. The problem occurs constantly. neuropathy Additional infor doni: Reports continued symptoms. Plans Short term disability while he works through [employer] process. 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 hypertension Comorbid conditi ons include diabetes mellitus. Risk factors include high salt intake, inactive lifestyle, male gender, obesity and sleep apnea. Pertinent negatives include chest pain, claudication, hematuria and irregular heartbeat/palpitations. diabetes The problem is s table. Managing with: Diet and Oral medications. Comorbidity: Hypertension. Associated symptoms include: burning of extremities. Pertinent negatives include frequent infections, urinary frequency, weight gain and weight loss. Neuropathy Severity level i s severe. The problem occurs constantly. Gait is characterized as unsteady. Associated symptoms include tingling. Pertinent negatives include agitation, ataxia, bladder incontinence, bowel dysfunction, dizziness, dysarthria, dysphagia, falling and fever. Additional information: Reports feet are getting worse, pain starting in the morning when gets up. Notices that he has difficulty feeling pedals when driving. Saw Vasc. surgeon , BLE arterial scan without Dx of PAD, told to f/u in 6 months. hyperlipidemia Reasons for scre ening include alcohol use, diabetes mellitus, diet, hypertension and obesity. Pertinent negatives include chest pain, claudication, diarrhea, dizziness, fatigue, headache, heartburn and nausea. diabetes The problem is s table. Managing with: Diet and Oral medications. Comorbidity: Hypertension. Pertinent negatives include chest pain, diarrhea, dyspnea, frequent infections, urinary frequency, weight gain and weight loss. hypertension Risk factors inc lude high salt intake, inactive lifestyle, male gender, obesity and sleep apnea. Pertinent negatives include chest pain, claudication, dyspnea, fatigue, hematuria, irregular heartbeat/palpitations, nausea and vomiting. hyperlipidemia Reasons for scre ening include alcohol use. Pertinent negatives include abdominal pain, chest pain, claudication, constipation, diarrhea, dizziness, fatigue, malaise and nausea. hypertension Risk factors inc lude high salt intake, inactive lifestyle, male gender, obesity and sleep apnea. Pertinent negatives include chest pain, claudication, hematuria and irregular heartbeat/palpitations. diabetes Managing with: D iet and Oral medications. Comorbidity: Hypertension. Pertinent negatives include burning of extremities, chest pain, frequent infections and urinary frequency. hyperlipidemia Reasons for scre ening include alcohol use. Pertinent negatives include chest pain and claudication. diabetes The problem is s table. Managing with: Diet and Oral medications. Comorbidity: Hypertension. Pertinent negatives include chest pain, diarrhea, dyspnea, frequent infections, urinary frequency and slow healing wounds / sores. hypertension Risk factors inc lude high salt intake, inactive lifestyle, male gender, obesity and sleep apnea. Pertinent negatives include chest pain, claudication, dyspnea, fatigue, hematuria, irregular heartbeat/palpitations, nausea and vomiting. hyperlipidemia Reasons for scre ening include alcohol use, diabetes mellitus and hypertension. Pertinent negatives include abdominal pain, chest pain, claudication, constipation, diarrhea, dizziness, fatigue, malaise and nausea. diabetes The problem is s table. Managing with: Diet and Oral medications. Comorbidity: Hypertension. Pertinent negatives include chest pain, diarrhea and dyspnea. hyperlipidemia hypertension Risk factors inc lude high salt intake, inactive lifestyle, male gender, obesity and sleep apnea. Pertinent negatives include chest pain, claudication, dyspnea, fatigue, hematuria, irregular heartbeat/palpitations, nausea and vomiting. hyperlipidemia Patient complian ce with diet is poor, with exercise is poor and with medication is excellent. Reasons for screening include alcohol use. Associated symptoms include chest pain. Pertinent negatives include abdominal pain, claudication, constipation, diarrhea, dizziness, fatigue, headache, malaise, myalgia and nausea. diabetes Managing with: O ral medications. Home glucose readings: Min 89, Max 300, Avg 99. Comorbidity: Hypertension. Associated symptoms include: burning of extremities, chest pain, dyspnea and polydipsia. Pertinent negatives include blurred vision, diarrhea, foot ulcers and hypoglycemic episodes. hypertension Risk factors inc lude high salt intake, inactive lifestyle, male gender, obesity and sleep apnea. Associated symptoms include chest pain, diaphoresis and dyspnea. Pertinent negatives include claudication, fatigue, headache, hematuria, irregular heartbeat/palpitations, nausea and vomiting. Additional information: BPs at home are 120s-130s/70s-80s. Last week had chest tightness, pressure, sweating, tachycardia, low BP, SOB neuropathy Concerned about continued and worsening neuropathy - Pregabalin 300mg BID not as helpful as it was. hypertension Risk factors inc lude high salt intake, inactive lifestyle, male gender, obesity and sleep apnea. Pertinent negatives include chest pain, claudication, dyspnea, fatigue, hematuria, irregular heartbeat/palpitations, nausea and vomiting. diabetes Managing with: O ral medications. Comorbidity: Hypertension. Pertinent negatives include chest pain, diarrhea and dyspnea. hyperlipidemia Reasons for scre ening include alcohol use, diabetes mellitus, diet and hypertension. Pertinent negatives include abdominal pain, chest pain, claudication, constipation, diarrhea, dizziness, fatigue, malaise and nausea. URI (comments) Symptoms start o n Sunday. Reports he went to Urgent Care on Sunday - tested for Covid-19 states it was negative, Went to [facility] on Sunday for increased fever up to 101.3, states that they thought he may have PE , but it was ruled. Then to [facility] Sunday. Covid-19 test at [place] was negative. Diarrhea Onset: 2 months ago. Associated symptoms include fever. Additional information: Reports diarrhea x 2 months, reports it is nothing and but water . Had normal BMs previously. Now states he is seeing blood when he wipes. Denies hemorrhoids. URI Associated sympt oms include chills, cough, fever and headache. hyperlipidemia Patient complian ce with diet is good, with exercise is good, with medication is good and with follow up is good. Reasons for screening include alcohol use. Pertinent negatives include abdominal pain, chest pain, dizziness, fatigue and malaise. diabetes Patient is compl iant with using medication, follow-up, and using education materials. Managing with: Oral medications. Comorbidity: Hypertension. Pertinent negatives include chest pain and dyspnea. hypertension Risk factors inc lude high salt intake, inactive lifestyle, male gender, obesity and sleep apnea. The hypertension is exacerbated by anxiety and stress. Pertinent negatives include chest pain, dyspnea and fatigue. hypertension Risk factors inc lude high salt intake, inactive lifestyle, male gender, obesity and sleep apnea. The hypertension is exacerbated by anxiety and stress. Pertinent negatives include chest pain. diabetes Patient is compl iant with using medication, and follow-up. Managing with: Oral medications. Comorbidity: Hypertension. Pertinent negatives include chest pain. hyperlipidemia Patient complian ce with diet is good, with exercise is good and with medication is good. Reasons for screening include alcohol use. Pertinent negatives include chest pain. Additional information: pt presents to est care. Functional Status Date Functional Assessmen t No Information Instructions Date Instruction Additional Infor doni Giving encouragement to exercise Related to Dietary counseling and surveillance Lifestyle education regarding di et Related to Dietary counseling and surveillance Lifestyle education regarding di et Related to Dietary counseling and surveillance Giving encouragement to exercise Related to Dietary counseling and surveillance Giving encouragement to exercise Related to Dietary counseling and surveillance Lifestyle education regarding di et Related to Dietary counseling and surveillance - Continue metformin 1000mg twice daily, Glimepiride 4mg daily, and Trulicity 1.5mg daily- Follow up in 3 months Discussed: Type 2 diabetes education, management with medications, monitoring labs and plan of care; importance of proper footwear at all times, checking feet nightly and risk for foot injury complications due to diabetes; importance of annual vision screening for diabetic retinopathy/complications; Follow up in 3 mo or sooner if concerns Related to Type 2 diabetes mellitus with hyperglycemia Giving encouragement to exercise Related to Dietary counseling and surveillance Lifestyle education regarding di et Related to Dietary counseling and surveillance Giving encouragement to exercise Related to Dietary counseling and surveillance Lifestyle education regarding di et Related to Dietary counseling and surveillance Giving encouragement to exercise Related to Dietary counseling and surveillance Lifestyle education regarding di et Related to Dietary counseling and surveillance Giving encouragement to exercise Related to Dietary counseling and surveillance Lifestyle education regarding di et Related to Dietary counseling and surveillance - Continue metformin 1000mg twice daily, Glimepiride 4mg daily, and Trulicity 1.5mg daily- Follow up in 3 months Discussed: Type 2 diabetes education, management with medications, monitoring labs and plan of care; importance of proper footwear at all times, checking feet nightly and risk for foot injury complications due to diabetes; importance of annual vision screening for diabetic retinopathy/complications; Follow up in 3 mo or sooner if concerns Related to Type 2 diabetes mellitus with hyperglycemia Continue lisinopril 20mg dailyIncrease activityNo smokingDiscussed the following lifestyle modifications:DASH diet, Weight loss, Exercise, Salt restrictionETOH moderation, Controlling blood sugar Related to Essential hypertension Giving encouragement to exercise Related to Dietary counseling and surveillance Lifestyle education regarding di et Related to Dietary counseling and surveillance - Continue metformin 1000mg twice daily, Glimepiride 4mg daily, and Trulicity 1.5mg daily- Follow up in 3 months Discussed: Type 2 diabetes education, management with medications, monitoring labs and plan of care; importance of proper footwear at all times, checking feet nightly and risk for foot injury complications due to diabetes; importance of annual vision screening for diabetic retinopathy/complications; Follow up in 3 mo or sooner if concerns Related to Type 2 diabetes mellitus with hyperglycemia Continue lisinopril 20mg dailyIncrease activityNo smokingDiscussed the following lifestyle modifications:DASH diet, Weight loss, Exercise, Salt restrictionETOH moderation, Controlling blood sugar Related to Essential hypertension Giving encouragement to exercise Related to Dietary counseling and surveillance Lifestyle education regarding di et Related to Dietary counseling and surveillance Giving encouragement to exercise Related to Dietary counseling and surveillance Lifestyle education regarding di et Related to Dietary counseling and surveillance - Continue metformin 1000mg twice daily, Glimepiride 4mg daily, and Trulicity 1.5mg daily- Follow up in 3 months Discussed: Type 2 diabetes education, management with medications, monitoring labs and plan of care; importance of proper footwear at all times, checking feet nightly and risk for foot injury complications due to diabetes; importance of annual vision screening for diabetic retinopathy/complications; Follow up in 3 mo or sooner if concerns Related to Type 2 diabetes mellitus with hyperglycemia Giving encouragement to exercise Related to Dietary counseling and surveillance Lifestyle education regarding di et Related to Dietary counseling and surveillance -Will call with resu lts in 2-3 days.-Follow up in 3 months. Related to Hyperlipidemia, unspecified Continue lisinopril 20mg dailyIncrease activityNo smokingDiscussed the following lifestyle modifications:DASH diet, Weight loss, Exercise, Salt restrictionETOH moderation, Controlling blood sugar Related to Essential hypertension - Continue Gabapenti n 600mg two capsules 3 times daily Related to Type 2 diabetes mellitus with diabetic polyneuropathy Giving encouragement to exercise Related to Dietary counseling and surveillance Lifestyle education regarding di et Related to Dietary counseling and surveillance Continue lisinopril 20mg dailyIncrease activityNo smokingDiscussed the following lifestyle modifications:DASH diet, Weight loss, Exercise, Salt restrictionETOH moderation, Controlling blood sugar Related to Essential hypertension -Will call with resu lts in 2-3 days.-Follow up in 3 months. Related to Hyperlipidemia, unspecified - Continue metformin 1000mg twice daily, Glimepiride 4mg daily, and Trulicity 1.5mg daily- Follow up in 3 months Discussed: Type 2 diabetes education, management with medications, monitoring labs and plan of care; importance of proper footwear at all times, checking feet nightly and risk for foot injury complications due to diabetes; importance of annual vision screening for diabetic retinopathy/complications; Follow up in 3 mo or sooner if concerns Related to Type 2 diabetes mellitus with hyperglycemia - Continue Gabapenti n 600mg two capsules 3 times daily- Follow up for worsening symptoms Related to Type 2 diabetes mellitus with diabetic polyneuropathy Lifestyle education regarding di et Related to Dietary counseling and surveillance Giving encouragement to exercise Related to Dietary counseling and surveillance Continue lisinopril 20mg dailyIncrease activityNo smokingDiscussed the following lifestyle modifications:DASH diet, Weight loss, Exercise, Salt restrictionETOH moderation, Controlling blood sugar Related to Essential hypertension -Will call with resu lts in 2-3 days.-Follow up in 3 months. Related to Hyperlipidemia, unspecified - Continue metformin 1000mg twice daily, Glimepiride 4mg daily, and Trulicity 1.5mg daily- Follow up in 3 months Discussed: Type 2 diabetes education, management with medications, monitoring labs and plan of care; importance of proper footwear at all times, checking feet nightly and risk for foot injury complications due to diabetes; importance of annual vision screening for diabetic retinopathy/complications; Follow up in 3 mo or sooner if concerns Related to Type 2 diabetes mellitus with hyperglycemia - Continue Gabapenti n 600mg two capsules 3 times daily- Follow up for worsening symptoms Related to Type 2 diabetes mellitus with diabetic polyneuropathy Giving encouragement to exercise Related to Dietary counseling and surveillance Weight-reducing diet education R elated to Dietary counseling and surveillance Continue lisinopril 20mg dailyIncrease activityNo smokingDiscussed the following lifestyle modifications:DASH diet, Weight loss, Exercise, Salt restrictionETOH moderation, Controlling blood sugar Related to Essential hypertension - Continue metformin 1000mg twice daily, Glimepiride 4mg daily, and Trulicity 1.5mg daily- Follow up in 3 months Discussed: Type 2 diabetes education, management with medications, monitoring labs and plan of care; importance of proper footwear at all times, checking feet nightly and risk for foot injury complications due to diabetes; importance of annual vision screening for diabetic retinopathy/complications; Follow up in 3 mo or sooner if concerns Related to Type 2 diabetes mellitus with hyperglycemia -[facility]Follow up in 3 months. Related to Hyperlipidemia, unspecified - Continue Gabapenti n 600mg two capsules 3 times daily- Follow up for worsening symptoms Related to Type 2 diabetes mellitus with diabetic polyneuropathy Weight-reducing diet education R elated to Dietary counseling and surveillance Giving encouragement to exercise Related to Dietary counseling and surveillance - Continue metformin 1000mg twice daily, Glimepiride 4mg daily, and Trulicity 1.5mg daily- Follow up in 3 months Discussed: Type 2 diabetes education, management with medications, monitoring labs and plan of care; importance of proper footwear at all times, checking feet nightly and risk for foot injury complications due to diabetes; importance of annual vision screening for diabetic retinopathy/complications; Follow up in 3 mo or sooner if concerns Related to Type 2 diabetes mellitus with hyperglycemia - Continue Gabapenti n 600mg two capsules 3 times daily- Follow up for worsening symptoms Related to Type 2 diabetes mellitus with diabetic polyneuropathy Continue lisinopril 20mg dailyIncrease activityNo smokingDiscussed the following lifestyle modifications:DASH diet, Weight loss, Exercise, Salt restrictionETOH moderation, Controlling blood sugar Related to Essential hypertension -Will call with resu lts in 2-3 days.-Follow up in 3 months. Related to Hyperlipidemia, unspecified Giving encouragement to exercise Related to Dietary counseling and surveillance Weight-reducing diet education R elated to Dietary counseling and surveillance Continue lisinopril 20mg dailyIncrease activityNo smokingDiscussed the following lifestyle modifications:DASH diet, Weight loss, Exercise, Salt restrictionETOH moderation, Controlling blood sugar Related to Essential hypertension - Continue metformin 1000mg twice daily, Glimepiride 4mg daily, and Trulicity 1.5mg daily as long as insurance covers- Follow up in 3 months Discussed: Type 2 diabetes education, management with medications, monitoring labs and plan of care; importance of proper footwear at all times, checking feet nightly and risk for foot injury complications due to diabetes; importance of annual vision screening for diabetic retinopathy/complications; Follow up in 3 mo or sooner if concerns Related to Type 2 diabetes mellitus with hyperglycemia -Will get fasting la bs today.-Will call with results in 2-3 days.-Follow up in 3 months. Related to Hyperlipidemia, unspecified - Start Gabapentin 6 00mg two capsules 3 times daily- Follow up for worsening symptoms Related to Type 2 diabetes mellitus with diabetic polyneuropathy Weight-reducing diet education R elated to Dietary counseling and surveillance Giving encouragement to exercise Related to Dietary counseling and surveillance -Will get fasting la bs today.-Will call with results in 2-3 days.-Follow up in 3 months. Related to Hyperlipidemia, unspecified -Discussed with the patient that these are serious symptoms that may indicate a heart attack or pulmonary embolism.-If he experiences these symptoms again he needs to go to the ED.-Attempted to get an EKG in the office at today's visit, but EKG machine was not working.-Will place referral to cardiology. Related to Chest pain, unspecified type Continue lisinopril 20mg dailyIncrease activityNo smokingDiscussed the following lifestyle modifications:DASH diet, Weight loss, Exercise, Salt restrictionETOH moderation, Controlling blood sugar Related to Essential hypertension - Start Gabapentin 8 00mg one capsule 3 times daily- Follow up for worsening symptoms Related to Type 2 diabetes mellitus with diabetic polyneuropathy - Continue metformin 1000mg twice daily, Glimepiride 4mg daily, and Trulicity 1.5mg daily as long as insurance covers- Follow up in 3 months Discussed: Type 2 diabetes education, management with medications, monitoring labs and plan of care; importance of proper footwear at all times, checking feet nightly and risk for foot injury complications due to diabetes; importance of annual vision screening for diabetic retinopathy/complications; Follow up in 3 mo or sooner if concerns Related to Type 2 diabetes mellitus with hyperglycemia - Stop pregabalin; S tart Gabapentin 300mg one capsule 3 times daily- Follow up for worsening symptoms Related to Diabetic polyneuropathy associated with type 2 diabetes mellitus Giving encouragement to exercise Related to Dietary counseling and surveillance Weight-reducing diet education R elated to Dietary counseling and surveillance - Continue Atorvasta tin 20mg once daily- Will call with results in 3-5 days after labs are drawn.- Follow up in 3 months- Eat a diet rich in fruits and vegetables and lean proteins. Limit carbohydrates, red meats, fried and processed foods, and sugars/sugary drinks. Increase activity to 30 minutes most days of the week. Related to Hyperlipidemia, unspecified Continue lisinopril 20mg dailyIncrease activityNo smokingDiscussed the following lifestyle modifications:DASH diet, Weight loss, Exercise, Salt restrictionETOH moderation, Controlling blood sugar Related to Essential hypertension - Continue metformin 1000mg twice daily, Glimepiride 4mg daily- Start Trulicity 1.5mg daily- Follow up in 3 months Discussed: Type 2 diabetes education, management with medications, monitoring labs and plan of care; importance of proper footwear at all times, checking feet nightly and risk for foot injury complications due to diabetes; importance of annual vision screening for diabetic retinopathy/complications; Follow up in 3 mo or sooner if concerns Related to Type 2 diabetes mellitus with hyperglycemia Giving encouragement to exercise Related to Dietary counseling and surveillance Weight-reducing diet education R elated to Dietary counseling and surveillance Giving encouragement to exercise Related to Dietary counseling and surveillance Weight-reducing diet education R elated to Dietary counseling and surveillance Weight-reducing diet education R elated to Dietary counseling and surveillance Giving encouragement to exercise Related to Dietary counseling and surveillance Assessments Type Assessment Date No Information Patient Care Teams Name Effective Dates (start - stop) Status Members No Information
== END 2024-11-03 09:24 | disposition home or self-care (01) ==
LOC: LAB 09:28
PROVIDERS: PCP Family Medicine; Visit Provider Family Medicine
DX: Z12.5 Encounter for screening for malignant neoplasm of prostate (principal)
CPT/HCPCS: 36415; G0103

== ENCOUNTER 2024-11-20 10:54 | Outpatient (OUT) | payer OTHER, SELFPAY ==
--- OUTSIDE RECORDS SUMMARY | 2024-10-15 06:27 | XMS_ITS ---
Author Organization [facility] in [place] Address [address] [place] [address] Care Team Providers Care Furniture Finisher Apprentice Name Role Phone Quique Augustine Primary Care Provider Reason For Referral Diagnosis 1 Neuropathy (G62.9) Referral Organization [facility] Referring Provider First Name Quique Referring Provider Last Name Davide Referring Provider [facility] icine Referred Provider Specialty Pain Medicin e Referral Priority Routine REASON FOR VISIT [place] Pain Encounters Encounter Location Date Provider Diagnosis [facility] [address] [place] [address] 10/15/2024 Quique Augustine Neuropathy G62.9 Assessments Encounter Date Diagnosis (ICD Code) Assessment Notes Treatment Notes Treatment Clinical Notes Section Notes 10/15/2024 Neuropathy (ICD-10 - G62.9) Plan Of Treatment Referrals Referral Date Details 10/15/2024 10/15/2024 Next Appt Details Provider Name:Quique Augustine, 10:15:00 AM, [address] [place], [address], Progress Notes * Senthil JIMENEZDOB:1965 (59 yo M)Acc No.[id number]:10/15/2024 Patient: Senthil LUO :1965 A ge:59 Y S ex:Male Address:[address] [place] [address], [address], [place], [address] Subjective: * Chief Complaints: * F remont Pain * Medical History: * Surgical History: * Hospitalization/Major Diagno stic Procedure: * Medications: Objective: * Vitals: * Physical Examination: Assessment: * Assessment: 1. N europathy - G62.9 (Primary) Plan: * Treatment: * Procedure Codes: * true * Date: Generated for Jamarii sneha/Yvonne/eTmadhavsmitting on: 0 11/20/2024 10:56 AM EDT Consultation Request Notes Referral Date Referring Provider Referred Provider Not es 10/15/2024 Quique Augustine ,
--- OUTSIDE RECORDS SUMMARY | 2024-10-15 06:33 | XMS_ITS ---
Author Organization [facility] in [place] Address [address] [place] [address] Care Team Providers Care Deicer Inspector Electric Name Role Phone Quique Augustine Primary Care Provider REASON FOR VISIT labs- Encounters Encounter Location Date Provider Diagnosis [facility] [address] [place] [address] 10/15/2024 Quique Augustine Prostate cancer screening Z12.5 Assessments Encounter Date Diagnosis (ICD Code) Assessment Notes Treatment Notes Treatment Clinical Notes Section Notes 10/15/2024 Prostate cancer screening (ICD-10 - Z12.5) Plan Of Treatment Pending Test Test Name Order Date PSA, SCREENING 10/15/2024 Next Appt Details Provider Name:Quique Augustine, 10:15:00 AM, [address] [place], [address], Progress Notes * ARABELLA SenthilDOB:1965 (59 yo M)Acc No.[id number]:10/15/2024 Patient: Senthil LUO :1965 A ge:59 Y S ex:Male Address:[facility] , [address], [place], [address] Subjective: * Chief Complaints: * L abs- * Medical History: * Surgical History: * Hospitalization/Major Diagno stic Procedure: * Medications: Objective: * Vitals: * Physical Examination: Assessment: * Assessment: 1. P rostate cancer screening - Z12.5 (Primary) Plan: * Treatment: * Procedure Codes: * true * Date: Generated for Timbo hoover/Yvonne/Renetta on: 0 11/20/2024 10:56 AM EDT
--- OUTSIDE RECORDS SUMMARY | 2024-10-28 07:23 | XMS_ITS ---
Author Organization [facility] in [place] Address [address] [place] [address] Care Team Providers Care Guard Driver Name Role Phone Davide Quique Primary Care Provider REASON FOR VISIT refill Medications Medication SIG (Take, Route, Fr equency, Duration) Notes Start Date End Date Status metFORMIN HCl 1000 MG 1 tablet with a me al Orally twice daily for 30 days 10/15/2024 Active Encounters Encounter Location Date Provider Diagnosis [facility] [address] [place] [address] 10/28/2024 Quique Augustine Plan Of Treatment Medication Medication Name Sig Start Date Stop Date Notes metFORMIN HCl 1000 MG 1 tablet with a me al Orally twice daily for 30 days 10/15/2024 Next Appt Details Provider Name:Quique Augustine, 10:15:00 AM, [address] [place], [address], Progress Notes * Senthil JIMENEZDOB:1965 (59 yo M)Acc No.[id number]:10/28/2024 Patient: Senthil LUO :1965 A ge:59 Y S ex:Male Address:[address] [place] [address] [address] , [address], [place], [address] * Refills Refill metFORMIN HCl Tablet, 1000 MG, Orally, 60, 1 tablet with a meal, twice daily, 30 days, Refills=11 * true * Date: Generated for Timbo hoover/Yvonne/Renetta on: 0 11/20/2024 10:57 AM EDT
--- OUTSIDE RECORDS SUMMARY | 2024-11-03 06:42 | XMS_ITS ---
Author Organization [facility] in [place] Address [address] [place] [address] Care Team Providers Care Broke Beater Machine Operator Name Role Phone Quique Augustine Primary Care Provider Reason For Referral Diagnosis 1 Neuropathy (G62.9) Referral Organization [facility] Referring Provider First Name Quique Referring Provider Last Name Davide Referring Provider Speciality Family Med icine Referred Provider Pain Management, [facility] Referred Provider Specialty Pain Medicin e Referral Priority Routine REASON FOR VISIT Pain Management- Encounters Encounter Location Date Provider Diagnosis [facility] [address] [place] [address] 11/03/2024 Quique Augustine Neuropathy G62.9 Assessments Encounter Date Diagnosis (ICD Code) Assessment Notes Treatment Notes Treatment Clinical Notes Section Notes 11/03/2024 Neuropathy (ICD-10 - G62.9) Plan Of Treatment Referrals Referral Date Details 11/03/2024 11/03/2024, [facility] Pain Management Next Appt Details Provider Name:Quique Augustine, 10:15:00 AM, [address] [place], [address], Progress Notes * Sentihl JIMENEZDOB:1965 (59 yo M)Acc No.[id number]:11/03/2024 Patient: Senthil LUO :1965 A ge:59 Y S ex:Male Address:[address], [place], [address] Subjective: * Chief Complaints: * P ain Management- * Medical History: * Surgical History: * Hospitalization/Major Diagno stic Procedure: * Medications: Objective: * Vitals: * Physical Examination: Assessment: * Assessment: 1. N europathy - G62.9 (Primary) Plan: * Treatment: * Procedure Codes: * true * Date: Generated for Timbo hoover/Yvonne/Mihaelasmitting on: 0 11/20/2024 10:56 AM EDT Consultation Request Notes Referral Date Referring Provider Referred Provider Not es 11/03/2024 Quique Augustine Pain Management, [facility]
--- OUTSIDE RECORDS SUMMARY | 2024-11-03 09:05 | XMS_ITS ---
Author Organization [facility] in [place] Address [address] [place] [address] Care Team Providers Care Director Of Scientific Research Name Role Phone Quique Augustine Primary Care Provider REASON FOR VISIT PSA results Encounters Encounter Location Date Provider Diagnosis [address] [address] 11/03/2024 Quique Augustine Plan Of Treatment Next Appt Details Provider Name:Quique Del Rio Mariosofi, 10:15:00 AM, [address] [place], [address], Progress Notes * Senthil JIMENEZDOB:1965 (59 yo M)Acc No.[id number]:11/03/2024 Patient: Senthil LUO :1965 A ge:59 Y S ex:Male Address:[facility] [address], [place], [address] * true * Date: Generated for Timbo hoover/Yvonne/eTransmitting on: 0 11/20/2024 10:57 AM EDT
--- OUTSIDE RECORDS SUMMARY | 2024-11-20 10:56 | XMS_ITS | Clinical Summary ---
Author Organization [facility] Address [address], [address] [place] [address] Care Team Providers Care Energy Consultant Name Role Phone Unavailable Primary Care Provider Unavailabl e Allergies No known active allergies Medications metformin (GLUCOPHAGE) 500 MG tablet Take 500 mg by mouth 2 times daily (with meals). Active lisinopril (PRINIVIL;ZESTR IL) 10 MG tablet Take 20 mg by mouth daily Active amitriptyline (ELAVIL) 50 MG tablet Take 50 mg by mouth nightly. Active pregabalin (LYRICA) 75 MG capsule Take 75 mg by mouth 2 times daily. Active gabapentin (NEURONTIN) 800 MG tablet Take 800 mg by mouth 3 times daily. Active naproxen (NAPROSYN) 500 MG tablet Take 500 mg by mouth 2 times daily (with meals). Active HYDROcodone-nikolai taminophen (NORCO) 5-325 MG per tablet Take 1-2 tablets by mouth every 6 hours as needed for Pain for 16 doses. Sedation precautions please 16 tablet 0 3 Active omeprazole (PRILOSEC) 20 MG delayed release capsule Take 40 mg by mouth daily Active vitamin B-12 (CYANOCOBALAMIN ) 100 MCG tablet Take 50 mcg by mouth daily Active Multiple Vitamins-Minera ls (THERAPEUTIC MULTIVITAMIN-ME NERALS) tablet Take 1 tablet by mouth daily Active glimepiride (AMARYL) 4 MG tablet Take 4 mg by mouth every morning (before breakfast) Active magnesium 30 MG tablet Take 30 mg by mouth 2 times daily Active Social History Tobacco Use Types Packs/Day Years Used Date Smoking Tobacco: Former Cigarettes 2 15 Comments:quit 15 yrs ago Alcohol Use Standard Drinks/Week Comments No 0 (1 standard drink = 0.6 oz pur e alcohol) Sex and Gender Information Value Date Recorded Sex Assigned at Not on file Legal Sex Male 3:29 AM EST Gender Identity Not on file Sexual Orientation Not on file Last Filed Vital Signs Vital Sign Reading Time Taken Comments Blood Pressure 136/80 09/03/2012 5:50 PM EDT Pulse 89 09/03/2012 5:50 PM EDT Temperature 36.3 C (97.4 F) 09/03/2012 5:50 PM EDT Respiratory Rate 20 09/03/2012 5:50 PM EDT Oxygen Saturation 96% 09/03/2012 5:50 PM EDT Inhaled Oxygen Concentration - - Weight 130.2 kg (287 lb) 09/03/2012 5:50 PM EDT Height 177.8 cm (5' 10 ) 09/03/2012 5:50 PM EDT Body Mass Index 41.18 09/03/2012 5:50 PM EDT Plan of Treatment Not on file Insurance PPO [employer] [place] [employer] [id number] * Guarantor: ARENT,VIOLETA III Account Type Relation to Patient Date of Phone Billing Address Workers Comp Employer 1965 [phone] (Work) [address] [place] [address]
--- OUTSIDE RECORDS SUMMARY | 2024-11-20 10:57 | XMS_ITS | Patient Health Record ---
Author Organization [facility] in [place] Address [address] [place] [address] Care Team Providers Care Doctor Of Osteopathy Name Role Phone Davide Quique Primary Care Provider Allergies No Known Allergies Results Component Value Reference Range Notes PSA SCREENING Reviewed date:11/03/2024 01:06:12 PM Interpretation: Performing Lab: Notes/Report: [facility] , Prostate Specific Antigen Scrn 0.48 <=4.00 ng/ mL Performing Lab: see note ML - [facility] Reason For Referral Diagnosis 1 Neuropathy (G62.9) Referral Organization [facility] Referring Provider First Name Quique Referring Provider Last Name Mariosofi Referring Provider [facility] Referred Provider Specialty Pain Medicin e Referral Priority Routine Diagnosis 1 Neuropathy (G62.9) Referral Organization [facility] Referring Provider First Name Quique Referring Provider Last Name Davide Referring Provider [facility] Referred Provider Pain Management, [facility] Referred Provider Specialty Pain Medicin e Referral Priority Routine Medications Medication SIG (Take, Route, Frequency, Duration) Notes Start Date End Date Status Omeprazole 20 MG 1 capsule 1/2 to 1 h our before morning meal Orally Once a day 10/15/2024 Active Tamsulosin HCl 0.4 MG 1 capsule Orally Once a day 10/15/2024 Active traZODone HCl 50 MG 1-2 tablet Orally at bedtime 10/15/2024 Active Avodart 0.5 MG 1 capsule Orally Onc e a day for 30 days Active HYDROcodone-Acetaminophen 7.5-325 MG 1 tablet Orally every 8 hours PRN 10/15/2024 Active Lovastatin 40 MG 2 tablet with the ev ening meal Orally with evening meal 10/15/2024 Active metFORMIN HCl 1000 MG 1 tablet with a me al Orally twice daily for 30 days 10/15/2024 Active Trulicity 0.75 MG/0.5ML Inject 0.5ml Sub cutaneous once weekly for 30 days 10/15/2024 Active Cetirizine HCl 10 MG 1 tablet Orally Once a day Active DULoxetine HCl 60 MG 2 capsule Orally Once a day 0 10/15/2024 Active Gabapentin 600 MG 2 tablet Orally TID for 30 days 10/15/2024 Active FreeStyle Bibiana 3 Sensor Use 1 sensor ev ramirez 15 days DX E11.9 Active Social History Tobacco Use: Social History Observation Description Date Details (start date - stop date) Former Smoker 03/19/1980 - 03/19/1997 Tobacco Control (Standard) Question Answer Notes Tobacco use: Former smoker When did you start smoking? 03/19/1980 When did you stop smoking? 03/19/1997 How long has it been since y ou last smoked? Greater than 10 years Additional Findings: Tobacco non-user Ex-heavy c igarette smoker (20-30/day) AUDIT-C (Standard) Question Answer Notes Did you have a drink contain ing alcohol in the past year? Yes How often did you have a dri nk containing alcohol in the past year? Never (0 point) How many drinks did you have on a typical day when you were drinking in the past year? 1 or 2 drinks (0 point) How often did you have six o r more drinks on one occasion in the past year? Less than monthly (1 point) Points 1 Interpretation Negative Problems Problem Type SNOMED Code ICD Code Onset Dates Problem Status W/U Status Risk Notes Problem Hypertension (53814476) Hypertension (I10) Active confirmed Problem Gastroesophageal reflux disease (807041893) GERD (gastroesophageal reflux disease) (K21.9) Active confirmed Problem Type 2 diabetes mellitus (53730411) Type 2 diabetes mellitus (E11.9) Active confirmed Problem Neuropathy (074933704) Neuropathy (G62.9) Active confirmed Problem Benign prostatic hypertrophy without outflow obstruction (013211111) Prostate enlargement (N40.0) Active confirmed Problem Seasonal allergy (111402965) Seasonal allergies (J30.2) Active confirmed Problem Hypercholesterolemia (81720878) Hypercholesterolemia (E78.00) Active confirmed Problem Type II diabetes mellitus without complication (683235703) Diabetes (E11.9) Active confirmed Vital Signs Blood pressure diastolic 80 mm Hg 10/15/2024 Height 70 in 10/15/2024 Blood pressure systolic 112 mm Hg 10/15/2024 Weight 251.4 lbs 10/15/2024 BMI 36.07 kg/m2 10/15/2024 Encounters Encounter Location Date Provider Diagnosis [facility] [address] [place] [address] 10/15/2024 Quique Hoy Neuropathy G62.9 [facility] [address] [place] [address] 10/15/2024 Quique Hoy Prostate cancer scre ening Z12.5 [facility] [address] [place] [address] 10/28/2024 Quique Hoy [facility] [address] [place] [address] 11/03/2024 Quique Hoy Neuropathy G62.9 [facility] [address] [place] [address] 11/03/2024 Quique Hoy [facility] [address] [place] [address] 10/15/2024 Quique Hoy Diabetes E11.9 ; Hypercholesterolemia E78.00 ; Prostate enlargement N40.0 ; GERD (gastroesophageal reflux disease) K21.9 and Type 2 diabetes mellitus E11.9 Assessments Encounter Date Diagnosis (ICD Code) Assessment Notes Treatment Notes Treatment Clinical Notes Section Notes 10/15/2024 Diabetes (ICD-10 - E11.9) 10/15/2024 Hypercholesterolemia (ICD-10 - E78.00) 10/15/2024 Neuropathy (ICD-10 - G62.9) 10/15/2024 Prostate cancer screening (ICD-10 - Z12.5) 11/03/2024 Neuropathy (ICD-10 - G62.9) 10/15/2024 Prostate enlargement (ICD-10 - N40.0) 10/15/2024 GERD (gastroesophage al reflux disease) (ICD-10 - K21.9) 10/15/2024 Type 2 diabetes madhu itus (ICD-10 - E11.9) Plan Of Treatment Pending Test Test Name Order Date PSA, SCREENING 10/15/2024 Next Appt Details Provider Name:Quique Augustine, 10:15:00 AM, [address] [place], [address], Insurance Providers Payer Name Payer Address Payer Phone Subscriber Number Group Number Insured Name Patient Relationship to Insured Coverage Start Date Coverage End Date [employer] [address] ATTN CLAIMS [place], [place] [id number] Senthil Jimenez Self - patient is the insured Medical (General) History Medical History History ICD Code Neuropathy G62.9 Type 2 diabetes mellitus E11.9 Hypercholesterolemia E78.00 Seasonal allergies J30.2 Prostate enlargement N40.0 GERD (gastroesophageal reflux disease) K 21.9 Surgical History Surgery Date(Month/Year) Knee Replacement Knee Arthroscopy CARPAL TUNNEL
--- NOTE | 2024-11-20 11:54 | P.CN_ITS ---
Consult Note: HPI Data of Consult Patient: new to practice Consult date: 11/20/24 Requesting Physician: Brigid Monroy MD Primary Care Provider: Elijah Augustine MD Consult Narrative Reason for consult: neuropathic pain Narrative: Senthil Jimenez a pleasant 59 year old male with chronic diabetic polyneuropathy presents for consultation. Pt moved to the area and was a previous pain management pt in [facility], unfortunately we have no records at this time. Pt has been utilizing advil, gabapentin, cymbalta, norco, trazodone, and THC with mild relief. Pain 10/10 sharp shooting numbness to BUE and BLE. pt reported he was being worked up for a spinal cord stimulator at his previous practice. cc:: CC: Brigid Monroy MD Review of Systems ROS Musculoskeletal Reports: neck pain and extremity pain Exam Constitutional Documenting provider has reviewed patient's vital signs: yes Common normals: no apparent distress, oriented x3, healthy appearing, alert and well nourished General appearance: cooperative HENMT Common normals: normocephalic, hearing grossly normal bilaterally and moist oral mucous membranes Head and scalp: normocephalic Eye Common normals: PERRL Pupil: PERRL Neck & C-Spine Common normals: full ROM General: normal visual inspection Cervical spine: cervical ROM normal and pain with cervical ROM Chest Common normals: inspection of chest normal Respiratory Common normals: normal respiratory effort, no retractions and no use of accessory muscles Neuro Common normals: oriented x3 Sensorium/orientation: alert Other: decreased sensation to bilateral feet and hands strength 5/5 in BUE and BLE Psych Common normals: mental status grossly normal, thought process normal, cooperative, affect normal, speech normal and activity/motor behavior normal Speech: normal speech Thought process: normal thought process Results Additional Findings Additional findings: If on a controlled substance or opioids, I have checked an [place] report on this patient and there are no aberrancies noted in the prescribing history.??If on a controlled substance or opioid a drug screen was completed and reviewed within the last year, and if there has not been a drug screen completed we ordered one today to monitor higher risk, state monitored pain medication use. As part of providing excellent, safe, comprehensive care, the following was completed at our patient's visit: 1. A medication reconciliation and review to ensure accurate knowledge of current/active medications, including asking our patients to inform us about any [id number] medications or herbal remedies/nutritional supplements/alternative remedies. 2. A review to specifically ensure our patients have had annual screening for screening for depression, screening for tobacco use, and screening for unhealthy alcohol use. For concerning screenings had a discussion with the patient, provided patient education, and recommended follow-up with primary care provider when appropriate. If patient noted with a risk of falling, they received education on strength, gait, and balance training to prevent future risk of falling. Portions of this note may have been carried over from the previous visit and updated as appropriate. Please note this office utilizes paper charting in addition to the electronic medical record. A list of current medications, vitals, and PMH is available the re as the clinical staff outside of myself do not have access to [place] charting during the clinic day operations. As part of providing quality comprehensive care the current medications, vitals, and PMH were reviewed in the paper chart. Assessment and Plan Assessment and Plan (1) Painful diabetic neuropathy: Assessment and Plan: CALLIE 66% (2) Marijuana use: Assessment and Plan: nightly vaping of THC Plan 59 year old male with painful diabetic neuropathy presents for consultation, as discussed with our pain clinic he is a non narcotic care plan at this time due to THC/marijuana use. pt is interested in continuing on hydrocodone as he finds it beneficial, i did let the pt know he would need to completely stop THC prior to initiating opioids with our clinic. in regards to spinal cord stimulation, with pt needing a 4 lead trial to cover BUE and BLE pain we will refer to neurosurgery for further evaluation and workup. We will attempt to obtain pain management records, imaging records, and EMG results from his prior clinic with Dr Wasserman. f/u HANNAH at this time.
== END 2024-11-20 10:55 | disposition home or self-care (01) ==
PROVIDERS: PCP Family Medicine; Visit Provider Anesthesiology
DX: E13.42 Other specified diabetes mellitus with diabetic polyneuropathy (principal); F12.90 Cannabis use, unspecified, uncomplicated
CPT/HCPCS: G0463